=== PATIENT | female | born 1965 | race Caucasian/White ===

== ENCOUNTER → 2019-06-10 11:00 | Outpatient (BNVA) | payer SELFPAY | PROVIDERS: Visit Provider Registered Nurse | DX: E78.5 Hyperlipidemia, unspecified (principal); I10 Essential (primary) hypertension | CPT/HCPCS: 80053; 80061; 85025 ==

== ENCOUNTER 2020-02-18 21:52 | Inpatient (IN) | payer SELFPAY ==
[2020-02-18 22:14] VITALS: BP 120/86; PULSE 108; RESP 18; TEMP 37.2; O2SAT 97; BMI 18.3
--- NOTE | 2020-02-18 22:23 | W.ED.BACK ---
Documented by User: MARIE Guerrero 02/19/20 00:16 HPI - Back Pain/Injury General: Chief Complaint: Back Pain/Injury Stated Complaint: back pain/ blood in urine Time Seen by Provider: 02/18/20 22:23 Source: patient Mode of arrival: ambulatory Limitations: no limitations History of Present Illness: HPI Narrative: 54-year-old female comes in with low back pain on the left side of back. Patient reports 1 month ago she had hit her back against the counter and since then she has had some increased back discomfort. Patient today she noticed that she had blood in the urine. Patient came in for concerns of bleeding in the urine and the persistent low back pain. Patient does report history of coronary artery disease, hypertension, cigarette smoking, and alcohol use. Patient reports 2-3 drinks a night. MD elicited complaint: back pain Review of Systems General: Reports: 10 or more systems reviewed and unremarkable except in HPI and below Musc: Reports: back pain PFS ED PFSH: Medical History (Updated 02/19/20 @ 01:03 CDT by Adrien Samuel DO) CAD (coronary artery disease) Essential hypertension Hyperlipidemia Surgical History Hx of heart artery stent Social History Smoking and tobacco status: current every day smoker Physical Exam Const: COMMON NORMALS: no acute distress and patient oriented x3 GENERAL APPEARANCE: cooperative HENMT: COMMON NORMALS: normocephalic and Normal external nose present HEAD & SCALP: normal to inspection and normocephalic NOSE: Normal external nose present MOUTH: Normal oral and palatal mucosa present THROAT: posterior oropharynx normal Eye: GENERAL EYE: appearance normal, both eyes and all related structures Neck/C-Spine: COMMON NORMALS: full ROM Lymph: LYMPHATIC: no lymphadenopathy noted Chest: COMMONS NORMALS: normal inspection of the chest Resp: COMMON NORMALS: normal respiratory effort EFFORT & INSPECTION: Yes able to speak in complete sentences Cardio: COMMON NORMALS: regular rate and regular rhythm RATE: regular rate RHYTHM: regular rhythm GI: COMMON NORMALS: non-tender Back/Pelvis: LUMBAR SPINE/LOWER BACK: Yes paraspinal muscle tenderness Lumbar paraspinal muscle tenderness: bilateral Extremity: COMMON NORMALS: normal to inspection Neuro: COMMON NORMALS: patient oriented x3 and moves all extremities Psych: COMMON NORMALS: mental status grossly normal and cooperative Skin: COMMON NORMALS: no rashes or lesions noted GENERAL SKIN EXAM: no rashes or lesions noted Course ED course: 0006, reviewed laboratory values with Dr. Samuel regarding patient's anemia and patient's hyponatremia and hypokalemia. Patient also has significant urinary tract infection. He feels and agrees with me that patient probably needs to be admitted for treatment of the urinary tract infection investigation further regarding the anemia. We are awaiting CT results at this time. Vital Signs: Vital signs: Vital Signs Temperature 99.0 F 02/18/20 22:14 Pulse Rate 94 02/19/20 01:05 CD T Respiratory Rate 16 02/19/20 01:05 CD T Blood Pressure 126/84 02/19/20 01:05 CD T Pulse Oximetry 99 02/19/20 01:05 CD T MDM - Back Pain/Injury MDM Narrative: Medical decision making narrative: Patient comes in today for concerns of low back pain and blood in urine. Patient reports illness for last 2 days. On exam abdomen soft nontender. Patient has some bilateral paraspinous muscle tenderness on palpation. No vertebral tenderness of the spine. Patient is very pale in color. Vital signs are normal. Patient does admit to drinking alcohol this evening. Differential diagnosis includes not limited to GI bleed, urinary tract infection, renal calculi, anemia. Laboratory values noted a hemoglobin hematocrit of 7.1 and 20.5, sodium potassium was 124 and 3.0, patient's EtOH was 157, urinalysis showed a large amount of white blood cells. Patient needs treated for urinary tract infection and needs to be further evaluated for anemia and blood replacement. CT scan noted some cystitis and possible pyelonephritis and colitis. After he talked with Dr. Stanley who agreed to admission. Lab Data: Labs: Lab Results 02/18/20 02/18/20 02/18/20 Range/Units 22:10 22:33 22:40 WBC 6.1 (4.0-10.0) 10^3/ uL RBC 2.15 L (4.1-5.3) 10^6/u L Hgb 7.1 L (11.5-15.3) g/dL Hct 20.5 L* (37.0-47.0) % MCV 95.3 (81-99) fL MCH 33.0 (28.0-34.0) pg MCHC 34.6 (30.0-36.0) g/dL RDW 13.3 (12.1-15.1) % Plt Count 270 (130-400) 10^3/c mm MPV 8.7 (7.4-10.4) fL Neut % (Auto) 72.9 % Lymph % (Auto) 19.2 % [place] % (Auto) 6.0 % Eos % (Auto) 0.7 % Baso % (Auto) 0.5 % Neut # (Auto) 4.42 (1.8-7.7) 10^3/u L Lymph # (Auto) 1.2 (0.8-4.8) 10^3/u L [place] # (Auto) 0.4 (0.2-0.9) 10^3/u L Eos # (Auto) 0.0 (0.0-0.8) 10^3/u L Baso # (Auto) 0.0 (0.0-0.1) 10^3/u L Nucleated RBC % (a uto) 0 % Nucleated RBCs # 0.0 /100WBC Sodium (136-145) mmol/L Potassium (3.5-5.1) mmol/L Chloride (98-107) mmol/L Carbon Dioxide (22-29) mmol/L Anion Gap (5-19) BUN (6-20) mg/dL Creatinine (0.5-0.9) mg/dL GFR Calculation (90-130) mL/min Glucose (65-115) mg/dL Calculated Osmolal ity (285-295) mOsm/k g Calcium (8.5-10.5) mg/dL Total Bilirubin (0.15-1.2) mg/dL AST (0-32) U/L ALT (0-33) U/L Alkaline Phosphata se (35-105) IU/L Creatine Kinase (26-192) U/L Total Protein (6.6-8.7) g/dL Albumin (3.5-5.2) g/dL Globulin (1.3-4.6) g/dL Lipase (13-60) U/L Urine Color Yellow (Yellow) Urine Appearance Sl cloudy A (CLEAR) Urine pH 8 H (5-7) Ur Specific Gravit y 1.010 (1.005-1.030) Urine Protein 1+ H (Negative) Urine Glucose (UA) Norm (Normal) Urine Ketones 1+ H (Negative) Urine Blood 3+ H (Negative) Urine Nitrate Negative (Negative) Urine Bilirubin Neg (Negative) Prot Sulfosalicyli c Acd Positive (Negative) Urine Urobilinogen Norm (Negative) mg/dL Ur Leukocyte Honey ase 2+ H (Negative) Urine RBC 10-15 H (0-2) /hpf Urine WBC 55-80 H (0-5) /hpf Ur Squamous Epith Cells 0-4 H (0-5) /hpf Amorphous Sediment Not Reportable Urine Bacteria 4+ H (NONE) /hpf Ethyl Alcohol 156 H (0-10) mg/dL Blood Type Rho(D) Type 02/18/20 02/19/20 Range/Units 22:40 00:35 WBC (4.0-10.0) 10^3/ uL RBC (4.1-5.3) 10^6/u L Hgb (11.5-15.3) g/dL Hct (37.0-47.0) % MCV (81-99) fL MCH (28.0-34.0) pg MCHC (30.0-36.0) g/dL RDW (12.1-15.1) % Plt Count (130-400) 10^3/c mm MPV (7.4-10.4) fL Neut % (Auto) % Lymph % (Auto) % [place] % (Auto) % Eos % (Auto) % Baso % (Auto) % Neut # (Auto) (1.8-7.7) 10^3/u L Lymph # (Auto) (0.8-4.8) 10^3/u L [place] # (Auto) (0.2-0.9) 10^3/u L Eos # (Auto) (0.0-0.8) 10^3/u L Baso # (Auto) (0.0-0.1) 10^3/u L Nucleated RBC % (a uto) % Nucleated RBCs # /100WBC Sodium 124 L (136-145) mmol/L Potassium 3.0 L (3.5-5.1) mmol/L Chloride 80 L (98-107) mmol/L Carbon Dioxide 22 (22-29) mmol/L Anion Gap 25.0 H (5-19) BUN 5 L (6-20) mg/dL Creatinine 0.3 L (0.5-0.9) mg/dL GFR Calculation 232.7 H (90-130) mL/min Glucose 82 (65-115) mg/dL Calculated Osmolal ity 254 L (285-295) mOsm/k g Calcium 9.1 (8.5-10.5) mg/dL Total Bilirubin 0.4 (0.15-1.2) mg/dL AST 69 H (0-32) U/L ALT 16 (0-33) U/L Alkaline Phosphata se 172 H (35-105) IU/L Creatine Kinase 90 (26-192) U/L Total Protein 7.5 (6.6-8.7) g/dL Albumin 4.3 (3.5-5.2) g/dL Globulin 3.2 (1.3-4.6) g/dL Lipase 152 H (13-60) U/L Urine Color (Yellow) Urine Appearance (CLEAR) Urine pH (5-7) Ur Specific Gravit y (1.005-1.030) Urine Protein (Negative) Urine Glucose (UA) (Normal) Urine Ketones (Negative) Urine Blood (Negative) Urine Nitrate (Negative) Urine Bilirubin (Negative) Prot Sulfosalicyli c Acd (Negative) Urine Urobilinogen (Negative) mg/dL Ur Leukocyte Honey ase (Negative) Urine RBC (0-2) /hpf Urine WBC (0-5) /hpf Ur Squamous Epith Cells (0-5) /hpf Amorphous Sediment Urine Bacteria (NONE) /hpf Ethyl Alcohol (0-10) mg/dL Blood Type A Positive Rho(D) Type Positive Discharge Plan Discharge Patient Disposition: Admitted As Inpatient Clinical Impression: Colitis Anemia Qualifiers: Anemia type: iron deficiency Iron deficiency anemia type: chronic blood loss Qualified Code(s): D50.0 - Iron deficiency anemia secondary to blood loss (chronic) UTI (urinary tract infection) Qualifiers: Urinary tract infection type: acute cystitis Hematuria presence: with hematuria Qualified Code(s): N30.01 - Acute cystitis with hematuria Condition: Stable Coding Level of Care Code 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 [facility] Fwd Exam Comprehensive Documented by User: dArien Samuel DO 02/19/20 01:24 CDT HPI - Back Pain/Injury General: Chief Complaint: Back Pain/Injury Stated Complaint: back pain/ blood in urine Time Seen by Provider: 02/18/20 22:23 [facility] ED PFSH: Medical History (Updated 02/19/20 @ 01:03 CDT by Adrien Samuel DO) CAD (coronary artery disease) Essential hypertension Hyperlipidemia Surgical History Hx of heart artery stent Social History Smoking and tobacco status: current every day smoker Course Vital Signs: Vital signs: Vital Signs Temperature 99.0 F 02/18/20 22:14 Pulse Rate 94 02/19/20 01:05 CD T Respiratory Rate 16 02/19/20 01:05 CD T Blood Pressure 126/84 02/19/20 01:05 CD T Pulse Oximetry 99 02/19/20 01:05 CD T MDM - Back Pain/Injury MDM Narrative: Medical decision making narrative: This patient was originally seen by MARIE Henriquez. I agree with his history, evaluation, and initial management. This patient has colitis by CT. She also has a urinary tract infection. She has a hemoglobin of 7.1 that will require transfusion. Her potassium is 3.0. Spoke with the hospitalist team who is agreed to admit. He has seen the patient in the ER. Lab Data: Labs: Lab Results 02/18/20 02/18/20 02/18/20 Range/Units 22:10 22:33 22:40 WBC 6.1 (4.0-10.0) 10^3/ uL RBC 2.15 L (4.1-5.3) 10^6/u L Hgb 7.1 L (11.5-15.3) g/dL Hct 20.5 L* (37.0-47.0) % MCV 95.3 (81-99) fL MCH 33.0 (28.0-34.0) pg MCHC 34.6 (30.0-36.0) g/dL RDW 13.3 (12.1-15.1) % Plt Count 270 (130-400) 10^3/c mm MPV 8.7 (7.4-10.4) fL Neut % (Auto) 72.9 % Lymph % (Auto) 19.2 % [place] % (Auto) 6.0 % Eos % (Auto) 0.7 % Baso % (Auto) 0.5 % Neut # (Auto) 4.42 (1.8-7.7) 10^3/u L Lymph # (Auto) 1.2 (0.8-4.8) 10^3/u L [place] # (Auto) 0.4 (0.2-0.9) 10^3/u L Eos # (Auto) 0.0 (0.0-0.8) 10^3/u L Baso # (Auto) 0.0 (0.0-0.1) 10^3/u L Nucleated RBC % (a uto) 0 % Nucleated RBCs # 0.0 /100WBC Sodium (136-145) mmol/L Potassium (3.5-5.1) mmol/L Chloride (98-107) mmol/L Carbon Dioxide (22-29) mmol/L Anion Gap (5-19) BUN (6-20) mg/dL Creatinine (0.5-0.9) mg/dL GFR Calculation (90-130) mL/min Glucose (65-115) mg/dL Calculated Osmolal ity (285-295) mOsm/k g Calcium (8.5-10.5) mg/dL Total Bilirubin (0.15-1.2) mg/dL AST (0-32) U/L ALT (0-33) U/L Alkaline Phosphata se (35-105) IU/L Creatine Kinase (26-192) U/L Total Protein (6.6-8.7) g/dL Albumin (3.5-5.2) g/dL Globulin (1.3-4.6) g/dL Lipase (13-60) U/L Urine Color Yellow (Yellow) Urine Appearance Sl cloudy A (CLEAR) Urine pH 8 H (5-7) Ur Specific Gravit y 1.010 (1.005-1.030) Urine Protein 1+ H (Negative) Urine Glucose (UA) Norm (Normal) Urine Ketones 1+ H (Negative) Urine Blood 3+ H (Negative) Urine Nitrate Negative (Negative) Urine Bilirubin Neg (Negative) Prot Sulfosalicyli c Acd Positive (Negative) Urine Urobilinogen Norm (Negative) mg/dL Ur Leukocyte Honey ase 2+ H (Negative) Urine RBC 10-15 H (0-2) /hpf Urine WBC 55-80 H (0-5) /hpf Ur Squamous Epith Cells 0-4 H (0-5) /hpf Amorphous Sediment Not Reportable Urine Bacteria 4+ H (NONE) /hpf Ethyl Alcohol 156 H (0-10) mg/dL Blood Type Rho(D) Type 02/18/20 02/19/20 Range/Units 22:40 00:35 WBC (4.0-10.0) 10^3/ uL RBC (4.1-5.3) 10^6/u L Hgb (11.5-15.3) g/dL Hct (37.0-47.0) % MCV (81-99) fL MCH (28.0-34.0) pg MCHC (30.0-36.0) g/dL RDW (12.1-15.1) % Plt Count (130-400) 10^3/c mm MPV (7.4-10.4) fL Neut % (Auto) % Lymph % (Auto) % [place] % (Auto) % Eos % (Auto) % Baso % (Auto) % Neut # (Auto) (1.8-7.7) 10^3/u L Lymph # (Auto) (0.8-4.8) 10^3/u L [place] # (Auto) (0.2-0.9) 10^3/u L Eos # (Auto) (0.0-0.8) 10^3/u L Baso # (Auto) (0.0-0.1) 10^3/u L Nucleated RBC % (a uto) % Nucleated RBCs # /100WBC Sodium 124 L (136-145) mmol/L Potassium 3.0 L (3.5-5.1) mmol/L Chloride 80 L (98-107) mmol/L Carbon Dioxide 22 (22-29) mmol/L Anion Gap 25.0 H (5-19) BUN 5 L (6-20) mg/dL Creatinine 0.3 L (0.5-0.9) mg/dL GFR Calculation 232.7 H (90-130) mL/min Glucose 82 (65-115) mg/dL Calculated Osmolal ity 254 L (285-295) mOsm/k g Calcium 9.1 (8.5-10.5) mg/dL Total Bilirubin 0.4 (0.15-1.2) mg/dL AST 69 H (0-32) U/L ALT 16 (0-33) U/L Alkaline Phosphata se 172 H (35-105) IU/L Creatine Kinase 90 (26-192) U/L Total Protein 7.5 (6.6-8.7) g/dL Albumin 4.3 (3.5-5.2) g/dL Globulin 3.2 (1.3-4.6) g/dL Lipase 152 H (13-60) U/L Urine Color (Yellow) Urine Appearance (CLEAR) Urine pH (5-7) Ur Specific Gravit y (1.005-1.030) Urine Protein (Negative) Urine Glucose (UA) (Normal) Urine Ketones (Negative) Urine Blood (Negative) Urine Nitrate (Negative) Urine Bilirubin (Negative) Prot Sulfosalicyli c Acd (Negative) Urine Urobilinogen (Negative) mg/dL Ur Leukocyte Honey ase (Negative) Urine RBC (0-2) /hpf Urine WBC (0-5) /hpf Ur Squamous Epith Cells (0-5) /hpf Amorphous Sediment Urine Bacteria (NONE) /hpf Ethyl Alcohol (0-10) mg/dL Blood Type A Positive Rho(D) Type Positive Discharge Plan Discharge Patient Disposition: Admitted As Inpatient Clinical Impression: Colitis Anemia Qualifiers: Anemia type: iron deficiency Iron deficiency anemia type: chronic blood loss Qualified Code(s): D50.0 - Iron deficiency anemia secondary to blood loss (chronic) UTI (urinary tract infection) Qualifiers: Urinary tract infection type: acute cystitis Hematuria presence: with hematuria Qualified Code(s): N30.01 - Acute cystitis with hematuria Condition: Stable Coding Level of Care Code 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 [facility] Maria T Exam Comprehensive
--- NOTE | 2020-02-18 22:38 | CTR_ITS ---
PROCEDURE INFORMATION: Exam: CT Abdomen And Pelvis Without Contrast Exam date and time: 02/18/2020 11:33 PM Age: 54 years old Clinical indication: Abdominal pain; Flank; Other: Bilateral; Patient HX: C/O lbp and hematuria TECHNIQUE: Imaging protocol: Computed tomography of the abdomen and pelvis without contrast. Radiation optimization: All CT scans at this facility use at least one of these dose optimization techniques: automated exposure control; mA and/or kV adjustment per patient size (includes targeted exams where dose is matched to clinical indication); or iterative reconstruction. COMPARISON: No relevant prior studies available. RADIATION DOSE METRICS: Total DLP (mGy-cm): 461.34 FINDINGS: Liver: There is hypoattenuation of the hepatic parenchyma compatible with fatty infiltration. Gallbladder and bile ducts: Normal. No calcified stones. No ductal dilation. Pancreas: Normal. No ductal dilation. Spleen: Normal. No splenomegaly. Adrenal glands: Normal. No mass. Kidneys and ureters: Strandy opacities are seen in the right perinephric fascia possibly representing chronic scarring although inflammatory changes and pyelonephritis cannot be entirely excluded. A 1.1 mm nonobstructing left renal calculus is seen. Stomach and bowel: There is an edematous bowel wall pattern of the cecum and ascending colon, findings could represent colitis. Appendix: The appendix is visualized and is normal in configuration. Intraperitoneal space: Unremarkable. No free air. No significant fluid collection. Vasculature: Unremarkable. No abdominal aortic aneurysm. Lymph nodes: Small mesenteric lymph nodes are seen that are below CT criteria for lymphadenopathy. Urinary bladder: There is some mild bladder wall thickening and diffuse haziness seen along the serosal margin of the bladder, findings that may represent cystitis. Reproductive: Unremarkable as visualized. Bones/joints: Unremarkable. No acute fracture. Soft tissues: Unremarkable. CT/CT kidney stone 03121 IMPRESSION: 1. There is mild thickening of the bladder wall and diffuse haziness seen along the serosal margin of the bladder, findings that could represent cystitis. 2. Strandy opacities are seen in the right perinephric fascia possibly representing scarring although inflammatory changes and pyelonephritis cannot be entirely excluded. 3. Edematous bowel wall pattern of the cecum and ascending colon, findings that could represent colitis. 4. Fatty infiltration of the liver 5. 1.1 mm nonobstructing left renal calculus 6. Normal appendix Radiation Dose CTDIVOL = (mGy): DLP = 461.34 (mGy-cm)
[2020-02-18 22:43] LABS: Basophils % 0.5 %; Eosinophils % 0.7 %; Hemoglobin 7.1 g/dL (11.5-15.3); Lymphocytes # 1.2 10^3/uL (0.8-4.8); Lymphocytes % 19.2 %; Mean Corpuscular HGB Conc 34.6 g/dL (30.0-36.0); Mean Corpuscular Volume 95.3 fL (81-99); Mean Platelet Volume 8.7 fL (7.4-10.4); Monocytes # 0.4 10^3/uL (0.2-0.9); Neutrophils # 4.42 10^3/uL (1.8-7.7); Neutrophils % 72.9 %; Nucleated Red Blood Cells % 0 %; Platelet Count 270 10^3/cmm (130-400); Red Blood Count 2.15 10^6/uL (4.1-5.3); Red Cell Distribution Width 13.3 % (12.1-15.1); White Blood Count 6.1 10^3/uL (4.0-10.0)
[2020-02-18] MEDS: sodium chloride 0.9% 1,000 ML 999 ML IV (22:48)
[2020-02-18] MEDS: ketorolac 30 mg/mL INJ 15 MG IVP (22:48)
[2020-02-18 23:04] LABS: Alanine Aminotransferase 16 U/L (0-33); Albumin Level 4.3 g/dL (3.5-5.2); Alkaline Phosphatase 172 IU/L (35-105); Aspartate Amino Transferase 69 U/L (0-32); Blood Urea Nitrogen 5 mg/dL (6-20); Calcium 9.1 mg/dL (8.5-10.5); Carbon Dioxide 22 mmol/L (22-29); Chloride 80 mmol/L (98-107); Creatine Phosphokinase 90 U/L (26-192); Globulin 3.2 g/dL (1.3-4.6); Glomerular Filtration Rate 232.7 mL/min (90-130); Glucose 82 mg/dL (65-115); Lipase 152 U/L (13-60); Osmolality Calculated 254 mOsm/kg (285-295); Sodium 124 mmol/L (136-145); Total Bilirubin 0.4 mg/dL (0.15-1.2); Total Protein 7.5 g/dL (6.6-8.7)
[2020-02-18 23:15] LABS: Add Urine Microscopic? YES; Bilirubin Urine Neg (Negative); Blood Urine 3+ (Negative); Glucose Urine UA Norm (Normal); Ketones Urine 1+ (Negative); Leukocyte Esterase Urine 2+ (Negative); Nitrate Urine Negative (Negative); Protein Urine 1+ (Negative); Sulfosalicylic Acid Urine Positive (Negative); Urine Color Yellow (Yellow); Urobilinogen Urine Norm (Negative); pH Urine 8 (5-7)
[2020-02-18 23:23] LABS: Hematocrit 20.5 % (37.0-47.0)
[2020-02-18 23:28] LABS: Alcohol Level 156 mg/dL (0-10)
[2020-02-18 23:40] LABS: Add Urine Culture? Yes; Bacteria Urine 4+ /hpf; Squamous Epithelial Cell Urine 0-4 /hpf (0-5); WBC Urine 55-80 /hpf (0-5)
[2020-02-19] VITALS (10 sets, daily range): BP systolic 122–149; BP diastolic 64–91; PULSE 70–110; RESP 16–20; TEMP 36.4–37.1; O2SAT 96–100
[2020-02-19] MEDS: cefTRIAXone 1,000 MG in sodium chloride 0.9% (plus) 50 ML 100 MG IV ×3 (00:14→23:32)
--- NOTE | 2020-02-19 01:21 | P.HP_ITS ---
Providers/Chief Complaint Chief Complaint: back pain/ blood in urine History of Present Illness 54-year-old female with a past medical history significant for hypertension, coronary artery disease status post PCI/stent, dyslipidemia, tobacco abuse and chronic alcoholism who presented to the hospital with back pain and hematuria. As far as her back pain she stated this has been ongoing for about 1 month after she has sustained a fall. This episode however was different and more on her flanks. Earlier today while drinking at [employer] green party she stated she noted hematuria. Denied to recent fever or chills. Denied nausea or vomiting. Upon arrival to emergency room her initial laboratory workup showed a WBC of 6.1, hemoglobin of 7.1, hematocrit of 20.5 and a platelet count of 270. sodium of 124, potassium of 3.0, chloride of 80, bicarb 22, BUN of 5 and creatinine is 0.3. AST which was slightly elevated at 69, ALT of 16 an alkaline phosphatase of 172. urinalysis showed 2+ leukocyte esterase, 55 to 80 wbc's. Alcohol level was elevated 156. CT abdomen pelvis was performed which showed mild thickening of the bladder wall and haziness representing acute cystitis with strandy opacities in right perinephric fascia suspicious for pyelonephritis. Also noted to have edematous bowel pattern of the cecum and ascending colon suspicious for colitis. Patient was started on Rocephin and admitted to the hospital. Of note patient had denied any recent dark stools or bloody emesis. Has not had any prior EGD or colonoscopies. Medications/Allergies Home Medications Medication Instructions Recorded Confirmed Last Taken Type amitriptyline 10 mg tablet 10 mg PO DAILY 06/10/19 02/14/20 Unknown History aspirin 81 mg tablet,delayed 81 mg PO DAILY 06/10/19 02/14/20 Unknown History release lutein 6 mg capsule 6 mg PO DAILY 06/10/19 02/14/20 Unknown History nitroglycerin 0.4 mg sublingual 0.4 mg SUBLINGUAL Q5M PRN 06/10/19 02/14/20 Unknown History tablet atorvastatin 80 mg tablet 80 mg PO DAILY #90 tab 01/02/20 02/14/20 Unknown Rx metoprolol tartrate 25 mg tablet 12.5 mg PO BID #90 tab 01/02/20 02/14/20 Unknown Rx clopidogrel 75 mg tablet See Rx Instructions .ROUTE 01/13/20 02/14/20 Unknown Rx .COMPLEX #30 tab methocarbamol 500 mg tablet 500 mg PO DAILY PRN #90 tab 01/13/20 02/14/20 Unknown Rx buspirone 10 mg tablet 10 mg PO TID 90 Days #270 tab 02/14/20 02/14/20 Unknown Rx Allergies Allergy/AdvReac Type Severity Reaction Status Date / Time No Known Allergies Allergy Verified 02/14/20 14:50 PFSH Acute PFSH: Medical History (Updated 02/19/20 @ 02:01 by Veronica Armenta MD) CAD (coronary artery disease) Essential hypertension Hyperlipidemia Surgical History Hx of heart artery stent Social History Smoking and tobacco status: current every day smoker Vitals/I&O/Wt Last Vital Signs Temp 99.0 F 02/18/20 22:14 Pulse 94 02/19/20 01:05 CDT Resp 16 02/19/20 01:05 CDT BP 126/84 02/19/20 01:05 CDT Pulse Ox 99 02/19/20 01:05 CDT 02/18/20 02/18/20 02/19/20 14:59 22:59 05:59 Intake Total 1050 / 1050 Balance 1050 / 1050 Weight last 48 hrs Weight 47.627 kg Data : 02/18/20 22:40 02/18/20 22:40 A&P Assessment and plan (1) Cystitis, acute: Status: Acute (2) Hematuria: Status: Acute (3) Acute anemia: Status: Acute (4) Alcohol abuse: Status: Acute (5) Hyponatremia: Status: Acute Acute cystitis with hematuria Suspected R. Pyelonephritis Acute Anemia Alcohol intoxication risk for withdrawal Hyponatremia Hypokalemia Hypertension Dyslipidemia Tobacco abuse DVT ppx Plan; Continue Rocephin 2g IV q24hr Follow up on blood culture x 2 Follow up on urine culture Monitor H/H Transfuse if less than 7.0 Check Stool for occult blood Hold aspirin/plavix Consider surgery consult for scope Check Iron studies in am Protonix 40 mg IV BID NS at 75cc/hr CIWA with as needed Ativan based on score Fall/Seizure precautions Folate / Thiamine / MV added Alcohol cessation councling Check UA sodium / osm Replace K and repeat in am Repeat cbc/cmp in am Attestations Medical Necessity Statement*: Patient is admitted with acute cystitis/ pyelonephritis requiring IV antibiotics and hematuria with acute anemia will require over 2 midnight stay in hospital for evaluation and treatment Time Spent in Patient Care: (>than 50% of time spent in counselling and/or direct pt care on unit) . 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
--- NOTE | 2020-02-19 01:36 | PC.NURSE ---
meds not given due to time change
--- NOTE | 2020-02-19 01:45 | PC.NURSE ---
agree with this assessment
[2020-02-19] MEDS: pantoprazole 40 mg SDV IVP ×2 (02:15→14:32)
[2020-02-19] MEDS: sodium chloride 0.9% 1,000 ML 75 ML IV ×2 (02:54→23:31)
[2020-02-19 03:45] LABS: Urine Random Sodium 16 mmol/L
[2020-02-19 05:51] LABS: Basophils % 0.2 %; Eosinophils # 0.1 10^3/uL (0.0-0.8); Lymphocytes # 0.6 10^3/uL (0.8-4.8); Lymphocytes % 13.5 %; Mean Corpuscular HGB Conc 34.9 g/dL (30.0-36.0); Mean Corpuscular Hemoglobin 33.5 pg (28.0-34.0); Mean Platelet Volume 8.6 fL (7.4-10.4); Monocytes # 0.3 10^3/uL (0.2-0.9); Monocytes % 5.8 %; Neutrophils # 3.46 10^3/uL (1.8-7.7); Neutrophils % 77.8 %; Nucleated Red Blood Cells % 0 %; Platelet Count 174 10^3/cmm (130-400); Red Blood Count 1.73 10^6/uL (4.1-5.3); Red Cell Distribution Width 13.3 % (12.1-15.1); White Blood Count 4.5 10^3/uL (4.0-10.0)
[2020-02-19 05:52] LABS: Hematocrit 16.6 % (37.0-47.0); Hemoglobin 5.8 g/dL (11.5-15.3)
[2020-02-19 06:14] LABS: Iron 177 ug/dL (37-145)
[2020-02-19 06:24] LABS: Alanine Aminotransferase 13 U/L (0-33); Albumin Level 3.5 g/dL (3.5-5.2); Alkaline Phosphatase 139 IU/L (35-105); Aspartate Amino Transferase 54 U/L (0-32); Blood Urea Nitrogen 4 mg/dL (6-20); Calcium 7.9 mg/dL (8.5-10.5); Carbon Dioxide 20 mmol/L (22-29); Chloride 91 mmol/L (98-107); Globulin 2.2 g/dL (1.3-4.6); Glucose 61 mg/dL (65-115); Osmolality Calculated 267 mOsm/kg (285-295); Sodium 131 mmol/L (136-145); Total Bilirubin 0.4 mg/dL (0.15-1.2); Total Protein 5.7 g/dL (6.6-8.7)
[2020-02-19 06:28] LABS: Anion Gap 23.2 (5-19); Potassium 3.2 mmol/L (3.5-5.1)
[2020-02-19] MEDS: sodium chloride 0.9% (100 ml) 100 ML 50 ML (06:39)
[2020-02-19 06:48] LABS: Ferritin 1191 ng/mL (15-150)
[2020-02-19 06:49] LABS: Percent Saturation 91.2 % (20-50); Total Iron Binding Capacity 194 mcg/dl; Unsaturated Iron Binding < 17 ug/dL (112-347)
[2020-02-19] MEDS: potassium chloride oral liq 20 mEq/15 mL UDC 40 MEQ PO (06:51)
[2020-02-19 07:35] LABS: INR 1.24 (0.8-1.2)
--- NOTE | 2020-02-19 08:51 | P.PN_ITS ---
Subjective Subjective: Interval history: History and physical were reviewed. Patient reports some low back pain. She denies any dysuria. She states she sees blood when she urinates. She denies any vaginal bleeding. She reports no diarrhea, or blood in her stool. She reports no vomiting or hematemesis. She denies any anti-inflammatory use other than aspirin that she takes every day. This was prescribed along with Plavix after a LAD stent was placed July 2017. Medications: Reviewed: Yes Vitals/I&O/Wt Last Vital Signs Temp 97.6 F 02/19/20 07:43 Pulse 81 02/19/20 07:43 Resp 20 H 02/19/20 07:43 BP 124/84 02/19/20 07:43 Pulse Ox 100 02/19/20 07:43 02/18/20 02/19/20 02/19/20 23:59 06:59 14:59 Intake Total Output Total Balance Weight last 48 hrs Weight 47.673 kg Weight 47.627 kg Physical Exam Narrative: EXAM NARRATIVE: General exam is a white female, in no apparent distress Cardiovascular regular rate and rhythm, no murmur Lungs clear Abdomen is soft, positive bowel sounds. Nontender. Extremities no cyanosis clubbing or edema Data : 02/19/20 05:40 02/19/20 05:40 Micro: Microbiology 02/19/20 00:35 Blood Culture - Preliminary Blood SPECIMEN COLLECTED 02/19/20 00:35 Blood Culture - Preliminary Blood SPECIMEN COLLECTED A&P Assessment and plan (1) Anemia: Significant anemia. Await stool Hemoccult She reports blood in her urine but I have not visualized. Certainly her urinalysis was not impressive for blood. Transfusion of 1 unit packed red blood cells currently occurring. Recheck hemoglobin following. Check haptoglobin Does not appear to be acutely bleeding. Protonix 40 mg twice daily IV Continue hydration but reduce to 50 cc an hour considering giving significant blood products today. Avoid all anti-inflammatories Status: Acute Qualifiers: Anemia type: iron deficiency Iron deficiency anemia type: chronic blood loss Qualified Code(s): D50.0 - Iron deficiency anemia secondary to blood loss (chronic) (2) Cystitis, acute: Rocephin 1 g IV every 12 hours Await urine culture Status: Acute (3) Hyponatremia: Improved Check TSH Status: Acute (4) Hypokalemia: Supplement Status: Acute (5) Alcohol abuse: Monitor for withdrawal, [facility] protocol Thiamine, folate Status: Acute (6) Smoker: Counseling Status: Acute (7) CAD (coronary artery disease): Holding Plavix, aspirin secondary to severe anemia. Will need to reinitiate aspirin when hemoglobin is stable and bleeding risk is less Continue metoprolol, statin Status: Chronic Qualifiers: Coronary Disease-Associated Artery/Lesion type: unspecified vessel or lesion type [place] vs. transplanted heart: [place] heart Associated angina: without angina Qualified Code(s): I25.10 - Atherosclerotic heart disease of [place] coronary artery without angina pectoris (8) Essential hypertension: Continue metoprolol Status: Chronic (9) Hyperlipidemia: Continue statin Status: Acute Qualifiers: Hyperlipidemia type: mixed hyperlipidemia Qualified Code(s): E78.2 - Mixed hyperlipidemia Additional A&P Information Full code SCDs for DVT prophylaxis Attestations Medical Necessity Statement*: Needs continued hospital stay for evaluation of severe anemia requiring transfusion. Coding Level of Care Code Acute Junior Systems Administrator for Chg Fwd Diagnoses Anemia D50.0 Anemia type: iron deficiency Iron deficiency anemia type: chronic blood loss Cystitis, acute N30.00 Hyponatremia E87.1 Hypokalemia E87.6 Alcohol abuse F10.10 Smoker F17.200 CAD (coronary artery disease) I25.10 Coronary Disease-Associated Artery/Lesion type: unspecified vessel or lesion type [place] vs. transplanted heart: [place] heart Associated angina: without angina Essential hypertension I10 Hyperlipidemia E78.2 Hyperlipidemia type: mixed hyperlipidemia
[2020-02-19] MEDS: thiamine 100 mg Tablet PO (09:04)
[2020-02-19] MEDS: folic acid 1 mg Tablet PO (09:04)
[2020-02-19] MEDS: multivitamin therapeutic Tablet 1 TAB PO (09:04)
[2020-02-19 09:33] LABS: Magnesium 1.2 mg/dL (1.7-2.3); Thyroid Stimulating Hormone 2.51 uIU/mL (0.27-4.20)
--- NOTE | 2020-02-19 09:58 | PC.CHAP ---
Pastoral Care Encounter/Spiritual Assessment Type of Contact [X] Declined concrete curer visit [] Patient/Family/Request visit [] Outpatient visit [] Follow-up visit [] Physician referral [] Code/Alert [X] Routine visit [] Staff referral [] Actively dying [] Patient sleeping [] Family support [] [] Out of room [] Palliative care [] [] Receiving care in room [] Pre-surgical visit [] Trauma [] Long length of stay [] ICU visit [] Other: Relational/Emotional Strength [] Patient feels connected with others/family/visitors/staff [X] Distress [] Loneliness/isolation [] Abandonment Spirituality of Patient [] Person of Estefany [] Attends Uatsdin of their Estefany [] Believes in Prayer [] Reads Bible or Islam materials [X] There are Spiritual issues to be addressed [facility] Interventions [] Prayer [X] Active listening [X] Non-anxious presence [] Spiritual/emotional support [] Crisis/trauma care [] Spiritual counseling [] Bereavement support [] Provided bereavement packet [] Provided Bible/devotional materials [] Provided toy/stuffed animal, coloring book to patient or family member [] Provided Communion [] Anointing/[place] [] Salvation [] Completed spiritual assessment [] Other: Impact on Illness or Injury [X] Angry [] Fearful [] Anxious [] Often cries [] Exhaustion [] Unable to work [] Unable to attend temple [] Unable to walk/stand [] Unable to read [] Unable to drive [] Unable to eat/drink [] Unable to sleep [] Unable to be with family [] Patient intubated [] Other: Summary: Patient did not want to visit or share the events leading up to her hospitalization. Empathy and active listening offered. Those strategies led her to share that she's Gnosticism but no longer attends synagogue and that anything spiritual is between her and God. I supported her in the latter fact and she began to calm down, apologizing for being so grumpy with me. I assured her that talking when you are thirsty and not feeling well is probably not very pleasant. We could visit anytime. Time spent with patient: <5 mins
[2020-02-19] MEDS: potassium chloride ER 10 mEq Tablet 40 MEQ PO (09:59)
[2020-02-19] MEDS: magnesium sulfate premix 2 GM/50 ML PIGGYBACK IV (12:11)
[2020-02-19 12:41] LABS: Hematocrit 24.9 % (37.0-47.0); Hemoglobin 8.4 g/dL (11.5-15.3)
[2020-02-19 17:19] LABS: Hematocrit 21.1 % (37.0-47.0); Hemoglobin 7.3 g/dL (11.5-15.3)
[2020-02-19] MEDS: metoprolol tartrate 25 mg Tablet 12.5 MG PO (17:25)
[2020-02-19] MEDS: atorvastatin 40 mg Tablet 80 MG PO (21:27)
[2020-02-19] MEDS: BuSPIRONE 10 mg Tablet PO (21:27)
[2020-02-20] VITALS (9 sets, daily range): BP systolic 121–153; BP diastolic 74–94; PULSE 81–97; RESP 16–20; TEMP 36.4–36.9; O2SAT 97–100
[2020-02-20] MEDS: lanolin oint 7 gm 1 APPLIC TOPICAL (00:17)
[2020-02-20] MEDS: TRAMadol 50 mg Tablet PO ×4 (00:18→20:22)
[2020-02-20] MEDS: pantoprazole 40 mg SDV IVP ×2 (01:57→14:13)
[2020-02-20 06:08] LABS: INR 1.13 (0.8-1.2)
[2020-02-20 06:10] LABS: Basophils % 0.6 %; Eosinophils # 0.1 10^3/uL (0.0-0.8); Eosinophils % 2.7 %; Hemoglobin 6.6 g/dL (11.5-15.3); Lymphocytes # 0.8 10^3/uL (0.8-4.8); Lymphocytes % 23.5 %; Mean Corpuscular HGB Conc 34.2 g/dL (30.0-36.0); Mean Corpuscular Hemoglobin 32.4 pg (28.0-34.0); Mean Corpuscular Volume 94.6 fL (81-99); Mean Platelet Volume 8.8 fL (7.4-10.4); Monocytes # 0.3 10^3/uL (0.2-0.9); Monocytes % 9.6 %; Neutrophils # 2.09 10^3/uL (1.8-7.7); Nucleated Red Blood Cells % 0 %; Platelet Count 158 10^3/cmm (130-400); Red Blood Count 2.04 10^6/uL (4.1-5.3); Red Cell Distribution Width 14.7 % (12.1-15.1); White Blood Count 3.3 10^3/uL (4.0-10.0)
[2020-02-20 06:23] LABS: Magnesium 1.5 mg/dL (1.7-2.3)
[2020-02-20 06:28] LABS: Alanine Aminotransferase 14 U/L (0-33); Albumin Level 3.4 g/dL (3.5-5.2); Alkaline Phosphatase 128 IU/L (35-105); Anion Gap 15.3 (5-19); Aspartate Amino Transferase 58 U/L (0-32); Blood Urea Nitrogen 3 mg/dL (6-20); Calcium 7.6 mg/dL (8.5-10.5); Carbon Dioxide 21 mmol/L (22-29); Chloride 94 mmol/L (98-107); Globulin 2.6 g/dL (1.3-4.6); Glomerular Filtration Rate 232.7 mL/min (90-130); Glucose 92 mg/dL (65-115); Osmolality Calculated 260 mOsm/kg (285-295); Potassium 3.3 mmol/L (3.5-5.1); Sodium 127 mmol/L (136-145); Total Bilirubin 0.4 mg/dL (0.15-1.2)
[2020-02-20 06:31] LABS: Hematocrit 19.3 % (37.0-47.0)
--- NOTE | 2020-02-20 08:09 | PC.NURSE ---
(Late Entry) PRBC x1 completed 02/19/20 at 10:00am. Pt tolerated transfusion well; no s/s reaction noted. VSS; see paper flowsheet for vital sign trends.
[2020-02-20] MEDS: multivitamin therapeutic Tablet 1 TAB PO (09:33)
[2020-02-20] MEDS: BuSPIRONE 10 mg Tablet PO ×3 (09:33→20:23)
[2020-02-20] MEDS: metoprolol tartrate 25 mg Tablet 12.5 MG PO ×2 (09:33→17:30)
[2020-02-20] MEDS: thiamine 100 mg Tablet PO (09:33)
[2020-02-20] MEDS: folic acid 1 mg Tablet PO (09:33)
--- NOTE | 2020-02-20 10:06 | PC.CHAP ---
Pastoral Care Encounter/Spiritual Assessment Type of Contact [] Declined social media senior associate visit [] Patient/Family/Request visit [] Outpatient visit [] Follow-up visit [] Physician referral [] Code/Alert [] Routine visit [] Staff referral [] Actively dying [] Patient sleeping [] Family support [] [] Out of room [] Palliative care [] [] Receiving care in room [] Pre-surgical visit [] Trauma [] Long length of stay [] ICU visit [] Other: Relational/Emotional Strength [] Patient feels connected with others/family/visitors/staff [] Distress [] Loneliness/isolation [] Abandonment Spirituality of Patient [] Person of Estefany [] Attends Protestant of their Estefany [] Believes in Prayer [] Reads Bible or Christian materials [] There are Spiritual issues to be addressed Software Validation Technician Interventions [x] Prayer [] Active listening [] Non-anxious presence [] Spiritual/emotional support [] Crisis/trauma care [] Spiritual counseling [] Bereavement support [] Provided bereavement packet [] Provided Bible/devotional materials [] Provided toy/stuffed animal, coloring book to patient or family member [] Provided Communion [] Anointing/[place] [] Salvation [x] Completed spiritual assessment [] Other: Impact on Illness or Injury [] Angry [] Fearful [] Anxious [] Often cries [] Exhaustion [] Unable to work [] Unable to attend christian [] Unable to walk/stand [] Unable to read [] Unable to drive [] Unable to eat/drink [] Unable to sleep [] Unable to be with family [] Patient intubated [] Other: Summary Time spent with patient
--- NOTE | 2020-02-20 10:53 | USCV_ITS ---
Sugar Cassidy Age: 54 Gender: F : 1965 Exam Date: 02/20/2020 15:17 Ordering Phys: Brian Jj MD Technologist: Ronna Robins [place] [facility] [place] BP: 144 / 79 HR: 77 Rhythm: Sinus Technical Quality: Adequate MEASUREMENTS (Male / Female) Normal Values 2D ECHO LV Diastolic Diameter PLAX 3.6 cm 4.2 - 5.9 / 3.9 - 5.3 cm LV Systolic Diameter PLAX 2.1 cm LV Chamber Size 3.0 cm IVS Diastolic Thickness 1.1 cm 0.6 - 1.0 / 0.6 - 0.9 cm IVS Systolic Thickness 1.5 cm LVPW Diastolic Thickness 1.5 cm 0.6 - 1.0 / 0.6 - 0.9 cm LVPW Systolic Thickness 2.2 cm RV Chamber Size 2.4 cm LVOT Diameter 2.1 cm LV Ejection Fraction 2D Teich 71.5 % LV Ejection Fraction MOD 2C 49.7 % LV Ejection Fraction 2C AL 49.8 % LA Diameter 2.8 cm LA Width 3.6 cm LA Height 5.1 cm RA Width 3.0 cm RA Height 4.0 cm Aorta at Sinotubular Diameter 2.9 cm M-MODE LV Diastolic Diameter MM 4.2 cm 4.2 - 5.9 / 3.9 - 5.3 cm LV Systolic Diameter MM 2.5 cm LV Ejection Fraction MM Teich 72.0 % IVS Diastolic Thickness MM 1.0 cm 0.6 - 1.0 / 0.6 - 0.9 cm IVS Systolic Thickness MM 1.2 cm LVPW Diastolic Thickness MM 1.1 cm 0.6 - 1.0 / 0.6 - 0.9 cm LVPW Systolic Thickness MM 1.2 cm Aortic Annulus Diameter 2.9 cm LA Ao Ratio MM 1.1 MV E Point Septal Separation 0.4 cm DOPPLER AV Peak Velocity 116.0 cm/s LVOT Peak Velocity 108.0 cm/s AV Area Cont Eq vti 2.7 cm squared AV Area Cont Eq pk 3.2 cm squared MV Area PHT 6.7 cm squared Mitral E to A Ratio 1.2 MV E' Velocity 52.0 cm/s Mitral E to MV E' Ratio 5.6 Mitral E to LV E' Lateral Ratio 5.8 Mitral E to LV E' Septal Ratio 5.4 TR Peak Velocity 269.6 cm/s TR Peak Gradient 29.1 mmHg TR Mean Velocity 184.9 cm/s TR Mean Gradient 16.7 mmHg TR Velocity Time Integral 101.7 cm TV Peak E Velocity 77.0 cm/s Right Atrial Pressure 3.0 mmHg Pulmonary Artery Systolic Pressu 32.1 mmHg PV Peak Velocity 50.0 cm/s RV Acceleration Time 0.2 s RV Ejection Time 0.4 s RV AcT/ET 0.5 FINDINGS Left Ventricle Normal left ventricular size and systolic function, EF 55%. Mild left ventricular hypertrophy. No regional wall motion abnormalities. Right Ventricle The right ventricle is normal in size and function. Right Atrium The right atrium is normal in size. Left Atrium Mildly increased left atrial size. Mitral Valve Trace mitral valve regurgitation. Aortic Valve Structurally normal aortic valve without significant sclerosis or stenosis. There is no aortic regurgitation. Tricuspid Valve Mild tricuspid valve regurgitation. Pulmonic Valve Pulmonic valve not well visualized. Pericardium Normal pericardium without effusion. Aorta Normal ascending aorta dimension. CONCLUSIONS Normal left ventricular size and systolic function, EF 55%. Mild left ventricular hypertrophy. No regional wall motion abnormalities. Mildly increased left atrial size. Mild tricuspid valve regurgitation. Estimated pulmonary artery peak systolic pressure 32 mmHg Trace mitral valve regurgitation. There is no pericardial effusion. There are no intracardiac masses. No previous study is available for comparison. Dr Amanuel Oviedo MD [facility] (Electronically Signed) Final Date: 20 February 2020 21:41 S
--- NOTE | 2020-02-20 10:57 | P.PN_ITS ---
Subjective Subjective: Interval history: She is felling better today.Has no nausea,vomitting,no rip hematuria, deny any chest pain, sob. Vitals: Stable Labs: Fall in Hb: 6.6 Medications: Reviewed: Yes Vitals/I&O/Wt Last Vital Signs Temp 97.6 F 02/20/20 09:26 Pulse 93 02/20/20 09:26 Resp 20 H 02/20/20 09:26 BP 144/79 02/20/20 09:26 Pulse Ox 97 02/20/20 09:26 02/19/20 02/20/20 02/20/20 22:59 06:59 14:59 Intake Total 1000 / 1400 0 / 0 Output Total 450 / 450 Balance 1000 / 1400 -450 / 950 0 / 0 Weight last 48 hrs Weight 47.582 kg Weight 47.673 kg Weight 47.627 kg Physical Exam Const: COMMON NORMALS: patient oriented x3 HENMT: COMMON NORMALS: normocephalic, atraumatic, hearing grossly normal bilaterally and external ears normal HEAD & SCALP: normocephalic and atraumatic EXTERNAL EAR: Yes external ears normal Eye: COMMON NORMALS: no scleral icterus GENERAL EYE: appearance normal, both eyes and all related structures Chest: COMMONS NORMALS: normal inspection of the chest and normal palpation of entire chest wall CHEST: Yes Symmetrical chest wall rise Resp: COMMON NORMALS: normal respiratory effort, No retractions, No use of accessory muscles and clear to auscultation bilaterally EFFORT & INSPECTION: Yes symmetric chest movement AUSCULTATION: clear to auscultation bilaterally Cardio: COMMON NORMALS: regular rate, regular rhythm, S1 normal heart sound present, S2 normal heart sound present, No gallops present (Cardio), No murmurs present (Cardio), No rub (Cardio) and Peripheral pulses 2+ throughout RATE: regular rate RHYTHM: regular rhythm HEART SOUNDS: S1 normal heart sound present and S2 normal heart sound present PERIPHERAL PULSES: Peripheral pulses 2+ throughout GI: COMMON NORMALS: Normal to inspection, nondistended, normoactive bowel sounds present, Soft to palpation, non-tender, No hepatosplenomegaly present and no masses AUSCULTATION: Yes normoactive bowel sounds PALPATION: Yes Soft to palpation and Yes No hepatosplenomegaly present RECTAL EXAM: deferred Extremity: COMMON NORMALS: no clubbing, cyanosis or edema and no pedal edema Neuro: COMMON NORMALS: patient oriented x3 Data : 02/20/20 05:08 02/20/20 05:08 Micro: Microbiology 02/18/20 22:33 Urine Culture - Preliminary Urine,Clean Catch Gram Negative Rods Gram Negative Rods#2 02/19/20 00:35 Blood Culture - Preliminary Blood NEGATIVE TO DATE 02/19/20 00:35 Blood Culture - Preliminary Blood NEGATIVE TO DATE 02/19/20 10:31 Occult Blood (FIT) - Final Stool Routine Collection A&P Assessment and plan (1) Anemia: Significant anemia. stool Hemoccult:Positive: EGD and Colonscopy was discussed as a part of anemia work up and age appropiate screening ( Colonscopy ). She wants to be done as outpatient. She reports hematuria. Repeat U/A ,Prior urinalysis was not impressive for blood.If Significant painless hematuria persist then she will need outpatient cystoscopy for bladder cancer workup as C.T abdomen and pelvis : has failed to show Renal pathology. S/P 3 U packed red blood cells. haptoglobin:207 Protonix 40 mg twice daily IV Avoid all anti-inflammatories Status: Acute Qualifiers: Anemia type: iron deficiency Iron deficiency anemia type: chronic blood loss Qualified Code(s): D50.0 - Iron deficiency anemia secondary to blood loss (chronic) (2) Cystitis, acute: Rocephin 1 g IV every 12 hours Await urine culture Status: Acute (3) Hyponatremia: Monitor BMP TSH:2.51 Status: Acute (4) Hypokalemia: Supplement Status: Acute (5) Alcohol abuse: Monitor for withdrawal, [facility] protocol Thiamine, folate Status: Acute (6) Smoker: Counseling Status: Acute (7) CAD (coronary artery disease): Holding Plavix, aspirin secondary to severe anemia. Will need to reinitiate aspirin when hemoglobin is stable and bleeding risk is less Continue metoprolol, statin ECHO Status: Chronic Qualifiers: Coronary Disease-Associated Artery/Lesion type: unspecified vessel or l esion type [place] vs. transplanted heart: [place] heart Associated angina: without angina Qualified Code(s): I25.10 - Atherosclerotic heart disease of [place] coronary artery without angina pectoris (8) Essential hypertension: Continue metoprolol Status: Chronic (9) Hyperlipidemia: Continue statin Status: Acute Qualifiers: Hyperlipidemia type: mixed hyperlipidemia Qualified Code(s): E78.2 - Mixed hyperlipidemia (10) Hypomagnesemia: Serum Magnesium : 1.5 Likely 2/2 to chronic alcoholism Magnesium sulfate 4mg I.V * 1 DOSE Status: Acute Additional A&P Information Full code SCDs for DVT prophylaxis Attestations Medical Necessity Statement*: She needs to be in hospital for management of Severe symptomatic anemia. Coding Level of Care Code Acute Senior Reservations Agent for Chg Fwd Diagnoses Anemia D50.0 Anemia type: iron deficiency Iron deficiency anemia type: chronic blood loss Cystitis, acute N30.00 Hyponatremia E87.1 Hypokalemia E87.6 Alcohol abuse F10.10 Smoker F17.200 CAD (coronary artery disease) I25.10 Coronary Disease-Associated Artery/Lesion type: unspecified vessel or lesion type [place] vs. transplanted heart: [place] heart Associated angina: without angina Essential hypertension I10 Hyperlipidemia E78.2 Hyperlipidemia type: mixed hyperlipidemia Hypomagnesemia E83.42
[2020-02-20] MEDS: FUROsemide 20 mg Tablet PO (12:33)
[2020-02-20] MEDS: potassium chloride ER 10 mEq Tablet 40 MEQ PO (12:33)
[2020-02-20] MEDS: fixodent 39 gm Tube 1 APPLIC DENTAL ×2 (13:26→13:32)
[2020-02-20] MEDS: cefTRIAXone 1,000 MG in sodium chloride 0.9% (plus) 50 ML 100 MG IV ×2 (15:22→23:26)
[2020-02-20 15:53] LABS: Osmolality Urine 247 mOsm/kg (50-1200)
[2020-02-20] MEDS: magnesium sulfate premix 4 GM/100 ML PREMIX IV (16:41)
[2020-02-20] MEDS: sodium chloride 0.9% (100 ml) 100 ML (17:00)
--- NOTE | 2020-02-20 17:01 | PC.RESP ---
Smoking Cessation information sent to patient.
--- NOTE | 2020-02-20 19:55 | PC.NURSE ---
Pt received two units of PRBCs today during day shift. She tolerated the transfusions well; vitals stable throughout. See paper flowsheet for documentation of transfusion vitals, which is in the paper chart.
[2020-02-20] MEDS: atorvastatin 40 mg Tablet 80 MG PO (20:23)
[2020-02-20 20:33] LABS: Protein Urine 1+ (Negative); Specific Gravity, Urine 1.015 (1.005-1.030); Urine Appearance Cloudy (CLEAR); Urine Color Red (Yellow)
[2020-02-20 20:34] LABS: Bilirubin Urine Neg (Negative); Blood Urine 3+ (Negative); Glucose Urine UA Norm (Normal); Ketones Urine Negative (Negative); Leukocyte Esterase Urine 1+ (Negative); Nitrate Urine Negative (Negative); RBC Urine 40-50 /hpf (0-2); Squamous Epithelial Cell Urine 0-4 /hpf (0-5); Urobilinogen Urine Norm (Negative); WBC Urine 25-40 /hpf (0-5)
[2020-02-20 20:35] LABS: Add Urine Culture? No; Bacteria Urine 2+ /hpf
[2020-02-20] MEDS: hyDROXYzine 25 mg Capsule PO (22:12)
[2020-02-21 00:41] VITALS: BP 135/82; PULSE 93; RESP 17; TEMP 35.9; O2SAT 97
[2020-02-21] MEDS: TRAMadol 50 mg Tablet PO ×2 (02:13→09:20)
[2020-02-21] MEDS: pantoprazole 40 mg SDV IVP (02:48)
[2020-02-21 04:12] VITALS: BP 158/94; PULSE 102; RESP 18; TEMP 36.8; O2SAT 98
[2020-02-21 05:38] LABS: Basophils % 0.6 %; Eosinophils # 0.1 10^3/uL (0.0-0.8); Eosinophils % 1.9 %; Lymphocytes # 0.9 10^3/uL (0.8-4.8); Lymphocytes % 15.1 %; Mean Corpuscular HGB Conc 34.6 g/dL (30.0-36.0); Mean Corpuscular Hemoglobin 30.1 pg (28.0-34.0); Mean Platelet Volume 8.7 fL (7.4-10.4); Monocytes # 0.5 10^3/uL (0.2-0.9); Monocytes % 8.3 %; Neutrophils # 4.51 10^3/uL (1.8-7.7); Neutrophils % 72.5 %; Nucleated Red Blood Cells % 0 %; Platelet Count 152 10^3/cmm (130-400); Red Blood Count 3.89 10^6/uL (4.1-5.3); Red Cell Distribution Width 19.2 % (12.1-15.1); White Blood Count 6.2 10^3/uL (4.0-10.0)
[2020-02-21 05:45] LABS: Anion Gap 13.9 (5-19); Blood Urea Nitrogen 4 mg/dL (6-20); Calcium 8.3 mg/dL (8.5-10.5); Carbon Dioxide 20 mmol/L (22-29); Chloride 90 mmol/L (98-107); Glomerular Filtration Rate 232.7 mL/min (90-130); Glucose 116 mg/dL (65-115); Osmolality Calculated 248 mOsm/kg (285-295); Potassium 3.9 mmol/L (3.5-5.1); Sodium 120 mmol/L (136-145)
[2020-02-21 05:46] LABS: Hematocrit 33.8 % (37.0-47.0); Hemoglobin 11.7 g/dL (11.5-15.3); Mean Corpuscular Volume 86.9 fL (81-99)
--- NOTE | 2020-02-21 05:57 | PC.NURSE ---
SHIFT SUMMARY Has been awake most of the night. Was given Hydroxyzine po X1 after call to per pt request for sleeping meds. Was unhappy that he did not reorder the Trazadone and Amitryptyllin that she says she takes. Also c/os back pain and receives po Tramadol for. She says this does not work for very long. Urine pink with occ tiny clot noted. Denies any other urinary symptoms. H/H very good this am.
--- NOTE | 2020-02-21 07:08 | PC.NURSE ---
BURN Pt spilled hot water on her bed this morning. Has been using warm salt water to rinse sore mouth. Mouth sore from dentures. Stated water hit her left knee and fingers on left hand. Earle pink but no blistering noted. Applied [place] ointment to areas and day shift nurse aware
[2020-02-21 08:00] VITALS: BP 150/95; PULSE 92; RESP 20; TEMP 36.7; O2SAT 98
[2020-02-21] MEDS: BuSPIRONE 10 mg Tablet PO (09:21)
[2020-02-21] MEDS: thiamine 100 mg Tablet PO (09:21)
[2020-02-21] MEDS: multivitamin therapeutic Tablet 1 TAB PO (09:21)
[2020-02-21] MEDS: metoprolol tartrate 25 mg Tablet 12.5 MG PO (09:21)
[2020-02-21] MEDS: folic acid 1 mg Tablet PO (09:21)
--- NOTE | 2020-02-21 09:41 | PC.CHAP ---
Pastoral Care Encounter/Spiritual Assessment Type of Contact [] Declined acute care nursing assistant visit [] Patient/Family/Request visit [] Outpatient visit [] Follow-up visit [] Physician referral [] Code/Alert [] Routine visit [] Staff referral [] Actively dying [x] Patient sleeping [] Family support [] [] Out of room [] Palliative care [] [] Receiving care in room [] Pre-surgical visit [] Trauma [] Long length of stay [] ICU visit [] Other: Relational/Emotional Strength [] Patient feels connected with others/family/visitors/staff [] Distress [] Loneliness/isolation [] Abandonment Spirituality of Patient [] Person of Estefany [] Attends Hinduism of their Estefany [] Believes in Prayer [] Reads Bible or Mormon materials [] There are Spiritual issues to be addressed Odd Job Laborer Interventions [] Prayer [] Active listening [] Non-anxious presence [] Spiritual/emotional support [] Crisis/trauma care [] Spiritual counseling [] Bereavement support [] Provided bereavement packet [] Provided Bible/devotional materials [] Provided toy/stuffed animal, coloring book to patient or family member [] Provided Communion [] Anointing/[place] [] Salvation [] Completed spiritual assessment [] Other: Impact on Illness or Injury [] Angry [] Fearful [] Anxious [] Often cries [] Exhaustion [] Unable to work [] Unable to attend taoist [] Unable to walk/stand [] Unable to read [] Unable to drive [] Unable to eat/drink [] Unable to sleep [] Unable to be with family [] Patient intubated [] Other: Summary Time spent with patient
--- NOTE | 2020-02-21 10:01 | P.DS_ITS ---
Discharge Providers Date of Admission: 02/19/20 00:22 Date of Discharge: February 21, 2020 Attending Provider at Admission: Veronica Armenta Attending Provider at Discharge: Brian Jj MD Diagnoses at Discharge Discharge Diagnosis (1) Anemia: Status: Chronic Qualifiers: Anemia type: iron deficiency Iron deficiency anemia type: chronic blood loss Qualified Code(s): D50.0 - Iron deficiency anemia secondary to blood loss (chronic) (2) Cystitis, acute: Status: Resolved (3) Hyponatremia: Status: Chronic (4) Hypokalemia: Status: Resolved (5) Alcohol abuse: Status: Acute (6) Smoker: Status: Acute (7) CAD (coronary artery disease): Status: Chronic Qualifiers: Associated angina: without angina Coronary Disease-Associated Artery/Lesion type: unspecified vessel or lesion type [place] vs. transplanted heart: [place] heart Qualified Code(s): I25.10 - Atherosclerotic heart disease of [place] coronary artery without angina pectoris (8) Essential hypertension: Status: Chronic (9) Hyperlipidemia: Status: Chronic Qualifiers: Hyperlipidemia type: mixed hyperlipidemia Qualified Code(s): E78.2 - Mixed hyperlipidemia (10) Hypomagnesemia: Status: Resolved Reason for Visit Reason for Visit: back pain/ blood in urine Hospital Course Hospital Course: 54-year-old female with a past medical history significant for hypertension, coronary artery disease status post PCI/stent, dyslipidemia, tobacco abuse and chronic alcoholism who presented to the hospital with back pain and hematuria.She was admitted and managed for cystitis/ pyleonephritis as well for anemia likely 2/2 to ACD 2/2 chronic alcohol abuse. Her FOBT was positive ,she was offered age appropriate screening colonscopy as well as EGD to r/o possible G.I Bleed as a cause of her anemia or any underlying malignancy.She wants to get it done as outpatient. will follow the patient as outpatient.For her hematuria repeat U/A ass outpatient after completing her ABX course as well as possibly cystoscopy given her smoking history and painless hematuria.She will see as outpatient for further work up of hematuria.She has chronic asymptomatic hyponatremia likley 2/2 to long standing alcohol abuse.She is completely asymptomatic now with regards to hyponatremia.She will continue to take salt tab as outpaient.She was on ceftriaxone while inpatient and is being discharged on augmentin 500-125 q12 h daily for 7 days as urine culture has shown E.Coli as well as Kleb.Pneu sensitive to augmentin .Blood culture is negative. At the time of discharge she was not complaining of any urinary symptoms.She is being discharged in stable condition. 2DEcho:02/19 Normal left ventricular size and systolic function, EF 55%. Mild left ventricular hypertrophy. No regional wall motion abnormalities. Mildly increased left atrial size.Mild tricuspid valve regurgitation. Estimated pulmonary artery peak systolic pressure 32 mmHg. Trace mitral valve regurgitation. There is no pericardial effusion. There are no intracardiac masses. CT Abdomen And Pelvis Without Contrast: 02/17: 1. There is mild thickening of the bladder wall and diffuse haziness seen along the serosal margin of the bladder, findings that could represent cystitis. 2. Strandy opacities are seen in the right perinephric fascia possibly representing scarring although inflammatory changes and pyelonephritis cannot be entirely excluded. 3. Edematous bowel wall pattern of the cecum and ascending colon, findings that could represent colitis. 4. Fatty infiltration of the liver 5. 1.1 mm nonobstructing left renal calculus 6. Normal appendix: Physical Exam Const: COMMON NORMALS: patient oriented x3 HENMT: COMMON NORMALS: normocephalic, atraumatic, hearing grossly normal bilaterally and external ears normal HEAD & SCALP: normocephalic and atraumatic EXTERNAL EAR: Yes external ears normal Eye: COMMON NORMALS: no scleral icterus GENERAL EYE: appearance normal, both eyes and all related structures Chest: COMMONS NORMALS: normal inspection of the chest and normal palpation of entire chest wall CHEST: Yes Symmetrical chest wall rise Resp: COMMON NORMALS: normal respiratory effort, No retractions, No use of accessory muscles and clear to auscultation bilaterally EFFORT & INSPECTION: Yes symmetric chest movement AUSCULTATION: clear to auscultation bilaterally Cardio: COMMON NORMALS: regular rate, regular rhythm, S1 normal heart sound present, S2 normal heart sound present, No gallops present (Cardio), No murmurs present (Cardio), No rub (Cardio) and Peripheral pulses 2+ throughout RATE: regular rate RHYTHM: regular rhythm HEART SOUNDS: S1 normal heart sound present and S2 normal heart sound present PERIPHERAL PULSES: Peripheral pulses 2+ throughout GI: COMMON NORMALS: Normal to inspection, nondistended, normoactive bowel sounds present, Soft to palpation, non-tender, No hepatosplenomegaly present and no masses AUSCULTATION: Yes normoactive bowel sounds PALPATION: Yes Soft to palpation and Yes No hepatosplenomegaly present RECTAL EXAM: deferred Extremity: COMMON NORMALS: no clubbing, cyanosis or edema and no pedal edema Neuro: COMMON NORMALS: patient oriented x3 Discharge Data Data Completed and Pending: Completed Studies During Hospitalization Category Date Time Status CT kidney stone [id number] Urgent Cat Scan 02/18/20 22:38 Completed CV echo complete* [id number] Routine Ultrasound 02/20/20 10:53 Completed Pending at discharge Category Date Time Status Basic Metabolic P naomi AM LABS Lab 02/22/20 04:00 Ordered Basic Metabolic P naomi AM LABS Lab 02/23/20 04:00 Ordered Blood Culture Sta t Lab 02/19/20 00:35 Results Complete Blood Co unt w/Auto AM LABS Lab 02/22/20 04:00 Ordered Complete Blood Co unt w/Auto AM LABS Lab 02/23/20 04:00 Ordered Labs from last 24 hours 02/21/20 02/21/20 02/20/20 05:05 05:05 18:40 WBC 6.2 RBC 3.89 L Hgb 11.7 D Hct 33.8 L D MCV 86.9 D MCH 30.1 MCHC 34.6 RDW 19.2 H Plt Count 152 MPV 8.7 Neut % (Auto) 72.5 Lymph % (Auto) 15.1 [place] % (Auto) 8.3 Eos % (Auto) 1.9 Baso % (Auto) 0.6 Neut # (Auto) 4.51 Lymph # (Auto) 0.9 [place] # (Auto) 0.5 Eos # (Auto) 0.1 Baso # (Auto) 0.0 Nucleated RBC % (a uto) 0 Nucleated RBCs # 0.0 Sodium 120 L Potassium 3.9 Chloride 90 L Carbon Dioxide 20 L Anion Gap 13.9 BUN 4 L Creatinine 0.3 L GFR Calculation 232.7 H Glucose 116 H Calculated Osmolal ity 248 L Calcium 8.3 L Urine Color Red Urine Appearance Cloudy A Urine pH 5.0 Ur Specific Gravit y 1.015 Urine Protein 1+ H Urine Glucose (UA) Norm Urine Ketones Negative Urine Blood 3+ H Urine Nitrate Negative Urine Bilirubin Neg Urine Urobilinogen Norm Ur Leukocyte Honey ase 1+ H Urine RBC 40-50 H Urine WBC 25-40 H Ur Squamous Epith Cells 0-4 H Amorphous Sediment Not Reportable Urine Bacteria 2+ H Urine Osmolality Blood Type Rho(D) Type Antibody Screen Crossmatch 02/19/20 02/18/20 00:35 22:33 WBC RBC Hgb Hct MCV MCH MCHC RDW Plt Count MPV Neut % (Auto) Lymph % (Auto) [place] % (Auto) Eos % (Auto) Baso % (Auto) Neut # (Auto) Lymph # (Auto) [place] # (Auto) Eos # (Auto) Baso # (Auto) Nucleated RBC % (a uto) Nucleated RBCs # Sodium Potassium Chloride Carbon Dioxide Anion Gap BUN Creatinine GFR Calculation Glucose Calculated Osmolal ity Calcium Urine Color Urine Appearance Urine pH Ur Specific Gravit y Urine Protein Urine Glucose (UA) Urine Ketones Urine Blood Urine Nitrate Urine Bilirubin Urine Urobilinogen Ur Leukocyte Honey ase Urine RBC Urine WBC Ur Squamous Epith Cells Amorphous Sediment Urine Bacteria Urine Osmolality 247 Blood Type A Positive Rho(D) Type Positive Antibody Screen Negative Crossmatch See Detail Vitals: Last Vital Signs Temp 98.0 F 02/21/20 08:00 Pulse 92 02/21/20 08:00 Resp 20 H 02/21/20 08:00 BP 150/95 02/21/20 08:00 Pulse Ox 98 02/21/20 08:00 Discharge Plan Discharge Patient Disposition: Home Condition: Stable Prescriptions: New atorvastatin 40 mg tablet 40 mg PO DAILY Qty: 30 RF: 0 atorvastatin 40 mg tablet 40 mg PO DAILY Qty: 30 RF: 0 Multiple Vitamins Tablet 1 tab PO DAILY Qty: 30 RF: 0 tramadol 50 mg tablet 50 mg PO Q12H PRN (Reason: pain) Qty: 7 RF: 0 Augmentin 500-125 mg tablet 1 tab PO Q12H Qty: 14 RF: 0 Continued aspirin [Adult Aspirin Regimen] 81 mg tablet,delayed release (DR/EC) 81 mg PO DAILY RF: 0 nitroglycerin 0.4 mg tablet, sublingual 0.4 mg SUBLINGUAL Q5M PRN (Reason: Chest Pain) RF: 0 metoprolol tartrate 25 mg tablet 12.5 mg PO BID Qty: 90 RF: 0 buspirone 10 mg tablet 10 mg PO TID 90 Days Qty: 270 RF: 1 methocarbamol 500 mg tablet 500 mg PO DAILY PRN (Reason: back spasm) Qty: 90 RF: 1 Lutein Blue 1 cap PO DAILY RF: 0 MegaRed [place]-3 Krill Oil 1 cap PO DAILY RF: 0 Vitamin C 1 tab PO DAILY RF: 0 clopidogrel 75 mg tablet 75 mg PO DAILY RF: 0 Discontinued atorvastatin 80 mg tablet 80 mg PO DAILY Qty: 90 RF: 0 Discharge Orders: Discharge Order (Routine); Ordered 02/21/20 Ordered By: Brian Jj Referrals: Denny Forrester MD [Physician] - 02/23/20 9:00 am (For Routine colonscopy as well as for possible EGD as par of anemia work up) Trevin Aguillon MD [Physician] - 1 week ( For hematuria work up .DR AGUILLON OFFICE WILL CALL WITH APPOINTMENT [phone]) Discharge Diet: Usual diet Discharge Activity: Resume usual activity Patient Instructions: Alcohol Abuse, Tramadol (By mouth), Atorvastatin (By mouth), Levofloxacin (By mouth), How to Stop Smoking (GEN), Urinary Tract Infection in Women (GEN) Discharge Date/Time: 02/21/20 13:00 Discharge Attestations Time Spent in Discharge Care*: greater than 30 min Specific Discharge Activities: Specific discharge activities: educating patien t, educating and/or supporting family/caregiver, discussing with pcp/other providers, discussing with window caser/social workers/dc planners, documenting/other paperwork and evaluating patient/reviewing data Time Spent in Smoking Cessation: Time spent discussing smoking cessation with patient: 3 to 10 minutes Status at Discharge: Cognitive status at discharge: cognitively intact , Behavioral status at discharge: cooperative , Functional status at discharge: independent ambulation Overall status at discharge: patient is back to baseline Quality Metrics Clinical Quality Measures During this hospital stay, did patient experience: None Coding Level of Care Code Acute Ledge Man for Chg Fwd Exam Comprehensive Diagnoses Anemia D50.0 Anemia type: iron deficiency Iron deficiency anemia type: chronic blood loss Cystitis, acute N30.00 Hyponatremia E87.1 Hypokalemia E87.6 Alcohol abuse F10.10 Smoker F17.200 CAD (coronary artery disease) I25.10 Associated angina: without angina Coronary Disease-Associated Artery/Lesion type: unspecified vessel or lesion type [place] vs. transplanted heart: [place] heart Essential hypertension I10 Hyperlipidemia E78.2 Hyperlipidemia type: mixed hyperlipidemia Hypomagnesemia E83.42
[2020-02-21 11:22] VITALS: BP 138/88; PULSE 80; RESP 18; TEMP 36.4; O2SAT 97
[2020-02-21] MEDS: sodium chloride 1 gm Tablet PO (12:29)
--- NOTE | 2020-02-21 13:42 | PC.NURSE ---
Discharge instructions provided; all questions answered. Paperwork signed by patient. Home medications retrieved from [facility] and returned to pt. All belongings gathered and sent with patient. IV and cafeteria monitor removed. Pt was assisted to hospital entrance via wheelchair, and into private vehicle where her mother was waiting. No s/s distress; pt denied any concerns or needs at time of discharge.
== END 2020-02-21 13:00 | disposition home or self-care (01) | DRG 690 ==
LOC: ER 02-19 01:03 → MEDSURG 02-19 01:48
PROVIDERS: Emergency Medicine; Internal Medicine; Nurse Practitioner Family; Admitting Provider Hospitalist; Visit Provider Internal Medicine
DX: N30.00 Acute cystitis without hematuria (principal); E87.1 Hypo-osmolality and hyponatremia; I25.10 Atherosclerotic heart disease of native coronary artery without angina pectoris; D50.0 Iron deficiency anemia secondary to blood loss (chronic); E87.6 Hypokalemia; F17.210 Nicotine dependence, cigarettes, uncomplicated; E78.2 Mixed hyperlipidemia; E83.42 Hypomagnesemia; I10 Essential (primary) hypertension; Z95.5 Presence of coronary angioplasty implant and graft; F10.20 Alcohol dependence, uncomplicated; Z79.02 Long term (current) use of antithrombotics/antiplatelets; Z79.82 Long term (current) use of aspirin; R31.9 Hematuria, unspecified
CPT/HCPCS: 12345; 36415; 36430; 74176; 80048; 80053; 80307; 81001; 82274; 82550; 82728; 83010; 83540; 83550; 83690; 83735; 83935; 84300; 84443; 85014; 85018; 85025; 85610; 86850; 86900; 86920; 87040; 87077; 87086; 87186; 93306; 96372; 96375; 97161; 99283; C9113; J0610; J0696; J1885; J3411; J3475; J7030; P9016

== ENCOUNTER 2020-11-16 14:12 | Observation (INO) | payer MEDICAID, SELFPAY ==
--- NOTE | 2020-11-16 14:30 | XR_ITS ---
WS: [id number] XR chest 1V portable [id number] REASON FOR EXAM: palpitations FINDINGS: Normal heart and mediastinum. Calcification in the aortic arch and mild tortuosity of the thoracic ao rta without aneurysmal dilatation. Calcified granulomatous changes in both lungs. No acute pulmonary parenchymal or pleural abnormality is noted. Ovoid density projecting between the left third and fourth ribs laterally represents an art ifact not within the lung. Thoracic scoliosis convex right. XR/XR chest 1V portable [id number] IMPRESSION: No acute lung abnormality.
[2020-11-16 15:00] VITALS: BP 150/97; PULSE 130; RESP 15; TEMP 37.4; O2SAT 99; BMI 17.9
[2020-11-16 15:08] LABS: Basophils # 0.1 10^3/uL (0.0-0.1); Basophils % 0.8 %; Eosinophils % 0.1 %; Hematocrit 29.5 % (37.0-47.0); Hemoglobin 9.7 g/dL (11.5-15.3); Lymphocytes % 13.7 %; Mean Corpuscular HGB Conc 32.9 g/dL (30.0-36.0); Mean Corpuscular Hemoglobin 34.2 pg (28.0-34.0); Mean Corpuscular Volume 103.9 fL (81-99); Mean Platelet Volume 9.2 fL (7.4-10.4); Monocytes # 0.6 10^3/uL (0.2-0.9); Neutrophils # 5.41 10^3/uL (1.8-7.7); Nucleated Red Blood Cells % 0 %; Platelet Count 288 10^3/cmm (130-400); Red Blood Count 2.84 10^6/uL (4.1-5.3); Red Cell Distribution Width 14.6 % (12.1-15.1); White Blood Count 7.1 10^3/uL (4.0-10.0)
[2020-11-16 15:36] LABS: Troponin T (5th) Once 7 ng/L (0-10)
[2020-11-16 15:37] LABS: Alanine Aminotransferase 15 U/L (0-33); Albumin Level 4.2 g/dL (3.5-5.2); Alkaline Phosphatase 198 IU/L (35-105); Aspartate Amino Transferase 61 U/L (0-32); Blood Urea Nitrogen 5 mg/dL (6-20); Calcium 8.8 mg/dL (8.5-10.5); Carbon Dioxide 21 mmol/L (22-29); Chloride 83 mmol/L (98-107); Globulin 2.6 g/dL (1.3-4.6); Glomerular Filtration Rate 231.8 mL/min (90-130); Glucose 101 mg/dL (65-115); Osmolality Calculated 255 mOsm/kg (285-295); Sodium 124 mmol/L (136-145); Total Protein 6.8 g/dL (6.6-8.7)
[2020-11-16] MEDS: sodium chloride 0.9% 500 ML 999 ML IV (16:10)
--- NOTE | 2020-11-16 16:32 | ED_ITS ---
HPI - Chest Pain General: Chief Complaint: Chest Pain Stated Complaint: FAST HEART RATE/ POSSIBLE COVID Time Seen by Provider: 11/16/20 14:17 History of Present Illness: HPI narrative: 55-year-old female presents emergency room with complaint of rapid heart rate. She thinks she may have Covid as well. She has not been immunized. She had an episode of chest pain today she took 1 nitro and that relieved it she has not had any further chest pain since she denies any fever sweats or chills she does not have any associated nausea vomiting with that she did have radiation of the pain up into her neck. She has had coronary artery disease and had a stent placed within the last couple years while at [facility]. She had some heart failure issues in the past but has had them but not had any recent orthopnea or leg edema. On arrival in the ER she is tachycardic. Patient has been a heavy drinker in the past states her last drink was a couple of days ago. 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 [employer] Onset (ago): hour(s) Timing of current episode: episodic Prior episodes: Yes Onset: during rest Pain location: left chest Pain radiation: left arm and left shoulder Quality: tightness and heaviness Relieving factors: nothing Exacerbating factors: nothing Associated symptoms: Reports dyspnea, nausea and palpitations; Deny abdominal pain, diaphoresis, fever(s), leg edema, sense of impending doom, syncope or vomiting Review of Systems Const: Denies: fever(s) or diaphoresis ENMT: Denies: throat pain, ear or mastoid pain, nasal discharge or nasal congestion Card: Reports: palpitations; Denies: syncope Resp: Reports: dyspnea GI: Reports: nausea; Denies: abdominal pain or vomiting : Denies: flank pain, difficulty voiding, dysuria, urinary frequency or urinary urgency Skin/Breast: Denies: rash or pruritus PFSH ED PFSH: Medical History Acute anemia Alcohol abuse Anemia CAD (coronary artery disease) Colitis Cystitis, acute Essential hypertension Hematuria Hyperlipidemia Hypokalemia Hypomagnesemia Hyponatremia Smoker UTI (urinary tract infection) Surgical History Hx of heart artery stent Hx of oral surgery Hx of tubal ligation Social History Smoking and tobacco status: current every day smoker Alcohol intake: current Alcohol intake frequency: few times a week Alcohol type: hard liquor Desire information about alcohol rehabilitation?: No Counseling given: Yes Last alcohol use date: 11/14/20 Other details last alcohol use: 2-3 shots of vodka Household members: friend(s) Housing: Apartment Physical Exam Const: COMMON NORMALS: no acute distress GENERAL APPEARANCE: cooperative and comfortable ORIENTATION/CONSCIOUSNESS: Yes awake, Yes oriented to person, Yes oriented to place and Yes oriented to time HENMT: COMMON NORMALS: normocephalic, atraumatic and hearing grossly normal bilaterally HEAD & SCALP: normocephalic and atraumatic Neck/C-Spine: COMMON NORMALS: no JVD Resp: COMMON NORMALS: normal respiratory effort, No retractions, No use of accessory muscles and clear to auscultation bilaterally AUSCULTATION: clear to auscultation bilaterally Cardio: COMMON NORMALS: no JVD, regular rhythm and No murmurs present (Cardio) RATE: tachycardic RHYTHM: regular rhythm GI: COMMON NORMALS: Soft to palpation and No hepatosplenomegaly present AUSCULTATION: Yes normoactive bowel sounds PALPATION: Yes Soft to palpation, No Tenderness to palpation present (GI), No Guarding due to palpation present (GI) and Yes No hepatosplenomegaly present Extremity: COMMON NORMALS: normal to inspection, capillary refill normal, no clubbing, cyanosis or edema, no calf tenderness and no pedal edema Neuro: SENSORIUM/ORIENTATION: Yes oriented to person, Yes oriented to place and Yes oriented to time Skin: COMMON NORMALS: no rashes or lesions noted GENERAL SKIN EXAM: no rashes or lesions noted Course Vital Signs: Vital signs: Vital Signs Temperature 98.1 F 11/17/20 15:57 Pulse Rate 100 11/17/20 15:57 Respiratory Rate 24 H 11/17/20 15:57 Blood Pressure 146/86 11/17/20 15:57 Pulse Oximetry 100 11/17/20 15:57 MDM - Chest Pain MDM Narrative: Medical decision making narrative: Discussed with hospitalist. Given her history of heart disease and her chest pain on presentation we will go ahead and place her in observation serial troponins further evaluation will need to get records of her coronary artery interventions in the past she is also hyponatremic which will need to be addressed. Tox urine tox and alcohol pending Lab Data: Labs: Lab Results 11/16/20 11/16/20 11/16/20 Range/Units 14:00 14:00 14:00 WBC 7.1 (4.0-10.0) 10^3/ uL RBC 2.84 L (4.1-5.3) 10^6/u L Hgb 9.7 L (11.5-15.3) g/dL Hct 29.5 L (37.0-47.0) % MCV 103.9 H (81-99) fL MCH 34.2 H (28.0-34.0) pg MCHC 32.9 (30.0-36.0) g/dL RDW 14.6 (12.1-15.1) % Plt Count 288 (130-400) 10^3/c mm MPV 9.2 (7.4-10.4) fL Neut % (Auto) 76.0 % Lymph % (Auto) 13.7 % [place] % (Auto) 9.0 % Eos % (Auto) 0.1 % Baso % (Auto) 0.8 % Neut # (Auto) 5.41 (1.8-7.7) 10^3/u L Lymph # (Auto) 1.0 (0.8-4.8) 10^3/u L [place] # (Auto) 0.6 (0.2-0.9) 10^3/u L Eos # (Auto) 0.0 (0.0-0.8) 10^3/u L Baso # (Auto) 0.1 (0.0-0.1) 10^3/u L Nucleated RBC % (a uto) 0 % Nucleated RBCs # 0.0 /100WBC Sodium 124 L (136-145) mmol/L Potassium 3.0 L (3.5-5.1) mmol/L Chloride 83 L (98-107) mmol/L Carbon Dioxide 21 L (22-29) mmol/L Anion Gap 23.0 H (5-19) BUN 5 L (6-20) mg/dL Creatinine 0.3 L (0.5-0.9) mg/dL GFR Calculation 231.8 H (90-130) mL/min Glucose 101 (65-115) mg/dL Calculated Osmolal ity 255 L (285-295) mOsm/k g Calcium 8.8 (8.5-10.5) mg/dL Iron (37-145) ug/dL TIBC mcg/dl % Saturation (20-50) % Unsat Iron Binding (112-347) ug/dL Total Bilirubin 2.0 H (0.15-1.2) mg/dL AST 61 H (0-32) U/L ALT 15 (0-33) U/L Alkaline Phosphata se 198 H (35-105) IU/L Troponin T Gen 5 n g/L 7 (0-10) ng/L Troponin T Baselin e (0-10) ng/L NT-Pro-B Natriuret Pep (0-125) pg/mL Total Protein 6.8 (6.6-8.7) g/dL Albumin 4.2 (3.5-5.2) g/dL Globulin 2.6 (1.3-4.6) g/dL Vitamin B12 (232-1245) pg/mL Folate (4.8-37.3) ng/mL Procalcitonin (0-0.5) ng/mL TSH (0.27-4.20) uIU/ mL Ethyl Alcohol (0-10) mg/dL Hepatitis A IgM Ab (Nonreactive) Hep Bs Antigen (Nonreactive) Hep Bs Antibody (11.5-1000) Hep B Core Total A b (Nonreactive) Hepatitis C Antibo dy (Nonreactive) HIV 1&2 Ab & HIV 1 Ag (Non-Reactiv) HIV 1&2 Antibody (Non-Reactiv) SARS-CoV-2 Ag (Rap id) (Negative) 11/16/20 11/16/20 11/16/20 Range/Units 14:00 14:00 16:10 WBC (4.0-10.0) 10^3/ uL RBC (4.1-5.3) 10^6/u L Hgb (11.5-15.3) g/dL Hct (37.0-47.0) % MCV (81-99) fL MCH (28.0-34.0) pg MCHC (30.0-36.0) g/dL RDW (12.1-15.1) % Plt Count (130-400) 10^3/c mm MPV (7.4-10.4) fL Neut % (Auto) % Lymph % (Auto) % [place] % (Auto) % Eos % (Auto) % Baso % (Auto) % Neut # (Auto) (1.8-7.7) 10^3/u L Lymph # (Auto) (0.8-4.8) 10^3/u L [place] # (Auto) (0.2-0.9) 10^3/u L Eos # (Auto) (0.0-0.8) 10^3/u L Baso # (Auto) (0.0-0.1) 10^3/u L Nucleated RBC % (a uto) % Nucleated RBCs # /100WBC Sodium (136-145) mmol/L Potassium (3.5-5.1) mmol/L Chloride (98-107) mmol/L Carbon Dioxide (22-29) mmol/L Anion Gap (5-19) BUN (6-20) mg/dL Creatinine (0.5-0.9) mg/dL GFR Calculation (90-130) mL/min Glucose (65-115) mg/dL Calculated Osmolal ity (285-295) mOsm/k g Calcium (8.5-10.5) mg/dL Iron (37-145) ug/dL TIBC mcg/dl % Saturation (20-50) % Unsat Iron Binding (112-347) ug/dL Total Bilirubin (0.15-1.2) mg/dL AST (0-32) U/L ALT (0-33) U/L Alkaline Phosphata se (35-105) IU/L Troponin T Gen 5 n g/L (0-10) ng/L Troponin T Baselin e (0-10) ng/L NT-Pro-B Natriuret Pep 378 H (0-125) pg/mL Total Protein (6.6-8.7) g/dL Albumin (3.5-5.2) g/dL Globulin (1.3-4.6) g/dL Vitamin B12 671 (232-1245) pg/mL Folate 13.5 (4.8-37.3) ng/mL Procalcitonin (0-0.5) ng/mL TSH (0.27-4.20) uIU/ mL Ethyl Alcohol (0-10) mg/dL Hepatitis A IgM Ab (Nonreactive) Hep Bs Antigen (Nonreactive) Hep Bs Antibody (11.5-1000) Hep B Core Total A b (Nonreactive) Hepatitis C Antibo dy (Nonreactive) HIV 1&2 Ab & HIV 1 Ag (Non-Reactiv) HIV 1&2 Antibody (Non-Reactiv) SARS-CoV-2 Ag (Rap id) (Negative) 11/16/20 11/16/20 11/16/20 Range/Units 16:10 16:10 16:10 WBC (4.0-10.0) 10^3/ uL RBC (4.1-5.3) 10^6/u L Hgb (11.5-15.3) g/dL Hct (37.0-47.0) % MCV (81-99) fL MCH (28.0-34.0) pg MCHC (30.0-36.0) g/dL RDW (12.1-15.1) % Plt Count (130-400) 10^3/c mm MPV (7.4-10.4) fL Neut % (Auto) % Lymph % (Auto) % [place] % (Auto) % Eos % (Auto) % Baso % (Auto) % Neut # (Auto) (1.8-7.7) 10^3/u L Lymph # (Auto) (0.8-4.8) 10^3/u L [place] # (Auto) (0.2-0.9) 10^3/u L Eos # (Auto) (0.0-0.8) 10^3/u L Baso # (Auto) (0.0-0.1) 10^3/u L Nucleated RBC % (a uto) % Nucleated RBCs # /100WBC Sodium (136-145) mmol/L Potassium (3.5-5.1) mmol/L Chloride (98-107) mmol/L Carbon Dioxide (22-29) mmol/L Anion Gap (5-19) BUN (6-20) mg/dL Creatinine (0.5-0.9) mg/dL GFR Calculation (90-130) mL/min Glucose (65-115) mg/dL Calculated Osmolal ity (285-295) mOsm/k g Calcium (8.5-10.5) mg/dL Iron (37-145) ug/dL TIBC mcg/dl % Saturation (20-50) % Unsat Iron Binding (112-347) ug/dL Total Bilirubin (0.15-1.2) mg/dL AST (0-32) U/L ALT (0-33) U/L Alkaline Phosphata se (35-105) IU/L Troponin T Gen 5 n g/L (0-10) ng/L Troponin T Baselin e 7 (0-10) ng/L NT-Pro-B Natriuret Pep (0-125) pg/mL Total Protein (6.6-8.7) g/dL Albumin (3.5-5.2) g/dL Globulin (1.3-4.6) g/dL Vitamin B12 (232-1245) pg/mL Folate (4.8-37.3) ng/mL Procalcitonin (0-0.5) ng/mL TSH (0.27-4.20) uIU/ mL Ethyl Alcohol < 10 (0-10) mg/dL Hepatitis A IgM Ab (Nonreactive) Hep Bs Antigen (Nonreactive) Hep Bs Antibody (11.5-1000) Hep B Core Total A b (Nonreactive) Hepatitis C Antibo dy (Nonreactive) HIV 1&2 Ab & HIV 1 Ag (Non-Reactiv) HIV 1&2 Antibody (Non-Reactiv) SARS-CoV-2 Ag (Rap id) Negative (Negative) 11/16/20 11/16/20 11/16/20 Range/Units 16:10 16:10 16:10 WBC (4.0-10.0) 10^3/ uL RBC (4.1-5.3) 10^6/u L Hgb (11.5-15.3) g/dL Hct (37.0-47.0) % MCV (81-99) fL MCH (28.0-34.0) pg MCHC (30.0-36.0) g/dL RDW (12.1-15.1) % Plt Count (130-400) 10^3/c mm MPV (7.4-10.4) fL Neut % (Auto) % Lymph % (Auto) % [place] % (Auto) % Eos % (Auto) % Baso % (Auto) % Neut # (Auto) (1.8-7.7) 10^3/u L Lymph # (Auto) (0.8-4.8) 10^3/u L [place] # (Auto) (0.2-0.9) 10^3/u L Eos # (Auto) (0.0-0.8) 10^3/u L Baso # (Auto) (0.0-0.1) 10^3/u L Nucleated RBC % (a uto) % Nucleated RBCs # /100WBC Sodium (136-145) mmol/L Potassium (3.5-5.1) mmol/L Chloride (98-107) mmol/L Carbon Dioxide (22-29) mmol/L Anion Gap (5-19) BUN (6-20) mg/dL Creatinine (0.5-0.9) mg/dL GFR Calculation (90-130) mL/min Glucose (65-115) mg/dL Calculated Osmolal ity (285-295) mOsm/k g Calcium (8.5-10.5) mg/dL Iron 183 H (37-145) ug/dL TIBC 252 mcg/dl % Saturation 72.6 H (20-50) % Unsat Iron Binding 69 L (112-347) ug/dL Total Bilirubin (0.15-1.2) mg/dL AST (0-32) U/L ALT (0-33) U/L Alkaline Phosphata se (35-105) IU/L Troponin T Gen 5 n g/L (0-10) ng/L Troponin T Baselin e (0-10) ng/L NT-Pro-B Natriuret Pep (0-125) pg/mL Total Protein (6.6-8.7) g/dL Albumin (3.5-5.2) g/dL Globulin (1.3-4.6) g/dL Vitamin B12 (232-1245) pg/mL Folate (4.8-37.3) ng/mL Procalcitonin 0.26 (0-0.5) ng/mL TSH 3.52 (0.27-4.20) uIU/ mL Ethyl Alcohol (0-10) mg/dL Hepatitis A IgM Ab (Nonreactive) Hep Bs Antigen (Nonreactive) Hep Bs Antibody (11.5-1000) Hep B Core Total A b (Nonreactive) Hepatitis C Antibo dy (Nonreactive) HIV 1&2 Ab & HIV 1 Ag Non-reactive (Non-Reactiv) HIV 1&2 Antibody Non-reactive (Non-Reactiv) SARS-CoV-2 Ag (Rap id) (Negative) 11/16/20 Range/Units 16:10 WBC (4.0-10.0) 10^3/ uL RBC (4.1-5.3) 10^6/u L Hgb (11.5-15.3) g/dL Hct (37.0-47.0) % MCV (81-99) fL MCH (28.0-34.0) pg MCHC (30.0-36.0) g/dL RDW (12.1-15.1) % Plt Count (130-400) 10^3/c mm MPV (7.4-10.4) fL Neut % (Auto) % Lymph % (Auto) % [place] % (Auto) % Eos % (Auto) % Baso % (Auto) % Neut # (Auto) (1.8-7.7) 10^3/u L Lymph # (Auto) (0.8-4.8) 10^3/u L [place] # (Auto) (0.2-0.9) 10^3/u L Eos # (Auto) (0.0-0.8) 10^3/u L Baso # (Auto) (0.0-0.1) 10^3/u L Nucleated RBC % (a uto) % Nucleated RBCs # /100WBC Sodium (136-145) mmol/L Potassium (3.5-5.1) mmol/L Chloride (98-107) mmol/L Carbon Dioxide (22-29) mmol/L Anion Gap (5-19) BUN (6-20) mg/dL Creatinine (0.5-0.9) mg/dL GFR Calculation (90-130) mL/min Glucose (65-115) mg/dL Calculated Osmolal ity (285-295) mOsm/k g Calcium (8.5-10.5) mg/dL Iron (37-145) ug/dL TIBC mcg/dl % Saturation (20-50) % Unsat Iron Binding (112-347) ug/dL Total Bilirubin (0.15-1.2) mg/dL AST (0-32) U/L ALT (0-33) U/L Alkaline Phosphata se (35-105) IU/L Troponin T Gen 5 n g/L (0-10) ng/L Troponin T Baselin e (0-10) ng/L NT-Pro-B Natriuret Pep (0-125) pg/mL Total Protein (6.6-8.7) g/dL Albumin (3.5-5.2) g/dL Globulin (1.3-4.6) g/dL Vitamin B12 (232-1245) pg/mL Folate (4.8-37.3) ng/mL Procalcitonin (0-0.5) ng/mL TSH (0.27-4.20) uIU/ mL Ethyl Alcohol (0-10) mg/dL Hepatitis A IgM Ab Non-reactive (Nonreactive) Hep Bs Antigen Non-reactive (Nonreactive) Hep Bs Antibody 3.5 L (11.5-1000) Hep B Core Total A b Non-reactive (Nonreactive) Hepatitis C Antibo dy Non-reactive (Nonreactive) HIV 1&2 Ab & HIV 1 Ag (Non-Reactiv) HIV 1&2 Antibody (Non-Reactiv) SARS-CoV-2 Ag (Rap id) (Negative) Discharge Plan Discharge Patient Disposition: Admitted As Inpatient Admit Provider: Norbert Stearns Clinical Impression: Palpitations, Atypical chest pain, Anemia, Hypokalemia Condition: Stable Discharge Diet: Regular Discharge Activity: Resume usual activity Coding Level of Care Code 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
[2020-11-16 16:59] LABS: SARS Covid-2 Antigen Negative (Negative)
[2020-11-16] MEDS: metoprolol tartrate 1 mg/1 mL SDV 5 mL 2.5 MG IV (17:21)
[2020-11-16] MEDS: metoprolol tartrate 25 mg Tablet PO (17:21)
[2020-11-16] MEDS: LORazepam 1 mg Tablet PO (17:21)
[2020-11-16 17:22] VITALS: BP 163/93; PULSE 114; RESP 18; O2SAT 94
[2020-11-16 17:22] LABS: NT Pro B Type Natriuretic Pept 378 pg/mL (0-125)
--- NOTE | 2020-11-16 17:33 | ECG_ITS ---
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
[2020-11-16 18:00] VITALS: BP 111/84; PULSE 96; RESP 16; O2SAT 96
[2020-11-16 18:03] LABS: Troponin(5th) Baseline 7 ng/L (0-10)
[2020-11-16 18:11] LABS: Alcohol Level < 10 mg/dL (0-10)
[2020-11-16] MEDS: potassium chloride ER 20 mEq Tablet 80 MEQ PO (18:42)
--- NOTE | 2020-11-16 19:33 | ECG_ITS ---
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
[2020-11-16 20:06] LABS: Iron 183 ug/dL (37-145)
[2020-11-16 20:08] LABS: Procalcitonin 0.26 ng/mL (0-0.5)
[2020-11-16 20:11] LABS: Thyroid Stimulating Hormone 3.52 uIU/mL (0.27-4.20)
[2020-11-16 20:17] VITALS: BP 119/78; PULSE 89; RESP 16; O2SAT 99
[2020-11-16 20:21] LABS: Troponin 5 2HR 9.25 ng/L (0-10); Troponin 5 2HR Delta 2.25 ABS# (0-10)
[2020-11-16 21:44] LABS: HIV 1 & 2 Antibody Non-Reactive (Non-Reactiv); HIV 1 & 2 Antigen Non-Reactive (Non-Reactiv)
[2020-11-16 21:58] LABS: Hepatitis A Antibody IgM Non-Reactive (Nonreactive); Hepatitis B Core AB, Total Non-Reactive (Nonreactive); Hepatitis B Surface AB 3.5 (11.5-1000); Hepatitis B Surface Antigen Non-Reactive (Nonreactive); Hepatitis C Virus Antibody Non-Reactive (Nonreactive)
[2020-11-16 22:05] LABS: Percent Saturation 72.6 % (20-50); Total Iron Binding Capacity 252 mcg/dl; Unsaturated Iron Binding 69 ug/dL (112-347)
--- NOTE | 2020-11-16 22:59 | P.HP_ITS ---
Providers/Chief Complaint Admitting Physician: Norbert Stearns MD Chief Complaint: FAST HEART RATE/ POSSIBLE COVID History of Present Illness Sugar Cassidy is a 55 year old female with a past medical history significant for hypertension, coronary artery disease status post PCI/stent, dyslipidemia, tobacco abuse and chronic alcoholism who presented to the ER today complaining of palpitations and chest pressure for now since today morning. Patient states she has had the symptoms on and off since March but never so bad. Denies any aggravating or relieving factors. Complaining of occasional shortness of breath and cough. Denies any nausea, vomiting, headache, diarrhea, dizziness. States last she had alcohol was 2 days ago on her birthday when she had 2-3 shots of vodka. Patient is evasive about her alcohol use. She states she only drinks when offered by a friend, drinks 3-4 times a week. Denies any hallucinations, cold sweats, headache. She is also concerned of having COVID- 19. She is not vaccinated for COVID-19. 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 Patel. Denies any changes in medication recently. On presentation to the ER patient had a heart rate of 130. Currently her heart rate is running in the 90s with saturation of 98% on room air. Blood work in the ER showed a white count of 7.1, hemoglobin of 9.7, platelet count of 288, chemistry showing a sodium of 124, potassium of 3, chloride of 83, bicarb of 21, creatinine of 0.3, AST/ALT of 61/15 with a bilirubin of 2 with alkaline phosphatase of 198, baseline troponin of 7 with 2-hour delta of 3, proBNP of 378. I have requested ER for alcohol level and drug screen. Review of Systems General: Reports: 10 or more systems reviewed and unremarkable except in HPI and below Const: Denies: fever(s), chills, body aches, change in appetite, change in weight, malaise, night sweats, diaphoresis, change in sleep pattern, daytime sleepiness or snoring Eyes: Denies: change in vision, blurry vision, photophobia, eye discomfort or eye discharge ENMT: Denies: throat pain, enlarged tonsils, hoarseness, mouth pain, oral sores, dry mouth, tinnitus, nasal congestion or post nasal drip Card: Denies: chest pain, palpitations, irregular heart rhythm, edema, swelling of feet/ankles, lightheadedness, syncope, pre-syncope, dyspnea on exertion, orthopnea, leg pain with exertion or acrocyanosis Resp: Denies: dyspnea, productive cough, non-productive cough, wheezing, stridor, pain on inspiration, change in phlegm color, hemoptysis or chest congestion GI: Denies: abdominal pain, nausea, vomiting, hematemesis, coffee ground emesis, dysphagia, heartburn, diarrhea, constipation, bloating, GI cramping, change in bowel habits, pain on defecation, hematochezia or melena : Denies: flank pain, dysuria, urinary frequency, urinary urgency, urinary hesitancy, nocturia or hematuria Musc: Denies: neck pain, back pain, extremity pain, joint pain, joint swelling, joint redness, joint stiffness or limited range of motion Neuro: Denies: headache(s), numbness in extremities, weakness in extremities, sensory changes, lack of coordination, difficulty walking, frequent falls, dizziness, vertigo, confusion, Slurred speech present, difficulty communicating thoughts or seizure-like activity Psych: Denies: anxiety, depression, mood swings, panic attacks, hopelessness or irritability Endo: Denies: polyuria, polydipsia, tired all the time, cold intolerance, excessive sweating, flushing or heat intolerance Michael/Lymph: Denies: easy bruising or easy bleeding All/Imm: Denies: tongue swelling, facial swelling or acute wheezing Medications/Allergies Home Medications Medication Instructions Recorded Confirmed Last Taken Type aspirin 81 mg tablet,delayed 81 mg PO DAILY 06/10/19 11/16/20 11/16/20 History release nitroglycerin 0.4 mg sublingual 0.4 mg SUBLINGUAL Q5M PRN 06/10/19 11/16/20 11/16/20 History tablet buspirone 10 mg tablet 10 mg PO TID 90 Days #270 tab 02/14/20 11/16/20 11/16/20 Rx Vitamin C 1 tab PO DAILY 02/19/20 11/16/20 11/16/20 History atorvastatin 40 mg PO DAILY #30 tab 02/21/20 11/16/20 Unknown Rx tramadol 50 mg PO Q12H PRN #7 tab 02/21/20 11/16/20 Unknown Rx amlodipine 5 mg PO DAILY 11/16/20 11/16/20 11/16/20 History ergocalciferol (vitamin D2) 50,000 unit PO Q7D 11/16/20 11/16/20 11/14/20 History folic acid 1 mg PO DAILY 11/16/20 11/16/20 11/16/20 History methocarbamol 750 mg PO DAILY PRN 11/16/20 11/16/20 11/16/20 History potassium 99 mg PO DAILY 11/16/20 11/16/20 11/16/20 History thiamine HCl (vitamin B1) 50 mg PO DAILY 11/16/20 11/16/20 11/16/20 History trazodone 50 mg PO DAILY 11/16/20 11/16/20 Unknown History trazodone 100 mg PO DAILY 11/16/20 11/16/20 Unknown History Allergies Allergy/AdvReac Type Severity Reaction Status Date / Time No Known Allergies Allergy Verified 02/19/20 09:41 PFSH Acute PFSH: Medical History (Updated 11/16/20 @ 23:15 by Norbert Stearns MD) Anemia CAD (coronary artery disease) Colitis Cystitis, acute Essential hypertension Hematuria Hyperlipidemia Hypokalemia Hypomagnesemia Hyponatremia Smoker UTI (urinary tract infection) Surgical History (Updated 11/16/20 @ 23:15 by Norbert Stearns MD) Hx of heart artery stent Hx of oral surgery Hx of tubal ligation Social History (Updated 11/16/20 @ 23:16 by Norbert Stearns MD) Smoking and tobacco status: current every day smoker Alcohol intake: current Alcohol intake frequency: few times a week Alcohol type: hard liquor Desire information about alcohol rehabilitation?: No Counseling given: Yes Last alcohol use date: 11/14/20 Other details last alcohol use: 2-3 shots of vodka Household members: friend(s) Housing: Apartment Vitals/I&O/Wt Last Vital Signs Temp 99.4 F 11/16/20 15:00 Pulse 89 11/16/20 20:17 Resp 16 11/16/20 20:17 BP 119/78 11/16/20 20:17 Pulse Ox 99 11/16/20 20:17 Weight last 48 hrs Weight 45.813 kg Physical Exam Narrative: EXAM NARRATIVE: General: No acute distress, AO x3 HEENT: PERRLA, pupils bilaterally equal and reactive Chest: Normal vesicular breath sounds, no added sounds, equal good air entry bilaterally CVS: S1-S2 regular, no murmurs, no tachycardia, no gallops, no rubs Abdomen: Soft, nontender, no organomegaly, bowel sounds present Neuro: No focal deficits, no facial deformity, AO x3, power 5/5 in all limbs Data : 11/16/20 14:00 11/16/20 14:00 A&P Assessment and plan (1) Palpitations: Status: Acute (2) Chest pain: Status: Acute (3) CAD (coronary artery disease): Status: Acute Qualifiers: Coronary Disease-Associated Artery/Lesion type: unspecified vessel or lesion type [place] vs. transplanted heart: [place] heart Associated angina: without angina Qualified Code(s): I25.10 - Atherosclerotic heart disease of [place] coronary artery without angina pectoris (4) Hyponatremia: Status: Acute (5) Hypokalemia: Status: Acute (6) Essential hypertension: Status: Acute (7) Acute anemia: Status: Acute (8) Alcohol abuse: Status: Acute Additional A&P Information Palpitations: Could be secondary to atrial fibrillation. Check EKG. TSH. Echocardiogram done in February 2020 shows an EF of 55% with LVH, mild LA enlargement with a PASP of 22. Telemetry. Will monitor for atrial fibrillation. Start on metoprolol 25 mg twice daily. Will uptitrate accordingly. CAD: Post PCI: Came in complaining of chest pain. Most likely secondary to gastritis from alcohol abuse but given history of CAD, current smoking will admit for further evaluation. -Troponins and EKG. If significant we will consult cardiology and most likely a stress test on Thursday. Continue other chronic medications including aspirin, statin, nitro as needed. Alcohol abuse: [facility] protocol. Banana bag. Oral folic acid, thiamine. Hypertension: Goal blood pressure less than 140/90 mmHg. Continue with home medication of amlodipine at 5 mg daily. Hyponatremia: Chronic. Most likely from chronic alcohol abuse. Baseline seems to be running between 05 09-05 14. Sodium level is at baseline. Check urine lites Hypokalemia: Again because of alcohol abuse. Replete with 80 mEq oral potassium. Transaminitis/hyperbilirubinemia: Most likely from alcohol abuse. Check hepatitis panel, HIV. Check HbA1c, iron panel, vitamin B12, folate level, lipid panel, alcohol level, urine drug screen Full code. Cardiac diet. Famotidine for PUD prophylaxis. Maalox as needed. Bowel regimen. Attestations Medical Necessity Statement*: Anticipate admission for less than 2 midnights under observation for evaluation of palpitation and chest pressure with history of alcohol abuse and CAD Time Spent in Patient Care: Greater than 35 minutes (>than 50% of time spent in counselling and/or direct pt care on unit) . Coding Level of Care Code Acute Communication Assistant for Chg Fwd Diagnoses Palpitations R00.2 Chest pain R07.9 CAD (coronary artery disease) I25.10 Coronary Disease-Associated Artery/Lesion type: unspecified vessel or lesion type [place] vs. transplanted heart: [place] dehe heart Associated angina: without angina Hyponatremia E87.1 Hypokalemia E87.6 Essential hypertension I10 Acute anemia D64.9 Alcohol abuse F10.10
[2020-11-16 23:05] LABS: Troponin 5 6HR 10.24 ng/L (0-10); Troponin 5 6HR Delta 3.24 ng/L (0-12)
--- NOTE | 2020-11-16 23:33 | ECG_ITS ---
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 [employer]ic: : [id number] Requested By: Jameson Cisse Order Number: [id number] Reading MD: ZAN PENALOZA Measurements Intervals [place] Rate: 91 P: 29 CO: 129 QRS: 60 QRSD: 159 T: 65 QT: 389 QTc: 481 Interpretive Statements SINUS RHYTHM INTRAVENTRICULAR CONDUCTION DELAY [130+ ms QRS DURATION] Compared to ECG 11/16/2020 15:13:42 Intraventricular conduction delay now present Sinus tachycardia no longer present T-wave abnormality no longer present Possible ischemia no longer present Electronically Signed On 11-17-2020 20:31:21 CDT by ZAN PENALOZA [id number]
[2020-11-16 23:57] VITALS: BP 122/74; PULSE 96; RESP 18; O2SAT 96
[2020-11-17] VITALS (7 sets, daily range): BP systolic 139–146; BP diastolic 79–87; PULSE 80–102; RESP 16–32; TEMP 36.7–36.8; O2SAT 99–100
--- NOTE | 2020-11-17 00:04 | PC.NURSE ---
report to Sheri CHUNG
--- NOTE | 2020-11-17 00:30 | PC.NURSE ---
Patient received from ED via wheelchair. Ambulated from chair to bed ad nidhi. Patient denies chest pain or other discomforts at this time. CIWA performed. Patient is anxious but cooperative. Medications administered as ordered.
[2020-11-17] MEDS: folic acid 1 MG, multivitamin inj 10 ML, thiamine 100 MG in sodium chloride 0.9% 1,000 ML 252.8 MG IV (00:32)
[2020-11-17] MEDS: BuSPIRONE 10 mg Tablet PO ×3 (00:32→15:11)
[2020-11-17] MEDS: ferrous gluconate 324 mg Tablet PO ×2 (00:33→08:18)
[2020-11-17] MEDS: sodium chloride 0.9% 1,000 ML 50 ML IV (00:33)
[2020-11-17] MEDS: LORazepam 2 mg Tablet PO (00:33)
[2020-11-17] MEDS: enoxaparin 40 mg/0.4 mL Syringe SUBCUT (00:33)
[2020-11-17 00:36] LABS: Folate Level 13.5 ng/mL (4.8-37.3)
[2020-11-17 00:37] LABS: Vitamin B12 671 pg/mL (232-1245)
[2020-11-17 03:34] LABS: Amphetamines Screen Urine Negative (Negative); Barbiturates Screen Urine Negative (Negative); Benzodiazepines Screen Urine Positive (Negative); Cocaine Screen Urine Negative (Negative); Opiate Screen Urine Negative (Negative); PCP Screen Urine Negative (Negative); THC Screen Urine Negative (Negative)
[2020-11-17 03:47] LABS: Potassium, Radom Urine 9 mmol/L; Urine Random Chloride 36 mmol/L; Urine Random Sodium 44 mmol/L
[2020-11-17 03:51] LABS: Bilirubin Urine Neg (Negative); Blood Urine Neg (Negative); Glucose Urine UA Norm (Normal); Ketones Urine Negative (Negative); Nitrate Urine Positive (Negative); Protein Urine Neg (Negative); Sulfosalicylic Acid Urine Negative (Negative); Urine Appearance SL Hazy (CLEAR); Urine Color Yellow (Yellow); pH Urine 8 (5-7)
[2020-11-17 03:52] LABS: Add Urine Culture? Yes; Add Urine Microscopic? YES; Bacteria Urine 4+ /hpf; Leukocyte Esterase Urine 2+ (Negative); RBC Urine 0-4 /hpf (0-2); Squamous Epithelial Cell Urine 0-4 /hpf (0-5); Urobilinogen Urine 1 mg/dL (Negative); WBC Urine 25-40 /hpf (0-5)
[2020-11-17 05:16] LABS: Basophils % 1.1 %; Eosinophils # 0.1 10^3/uL (0.0-0.8); Eosinophils % 1.6 %; Hematocrit 25.3 % (37.0-47.0); Hemoglobin 7.8 g/dL (11.5-15.3); Lymphocytes # 1.1 10^3/uL (0.8-4.8); Lymphocytes % 30.4 %; Mean Corpuscular HGB Conc 30.8 g/dL (30.0-36.0); Mean Corpuscular Hemoglobin 34.2 pg (28.0-34.0); Mean Platelet Volume 9.2 fL (7.4-10.4); Monocytes # 0.4 10^3/uL (0.2-0.9); Monocytes % 10.6 %; Neutrophils # 2.06 10^3/uL (1.8-7.7); Nucleated Red Blood Cells % 0 %; Platelet Count 210 10^3/cmm (130-400); Red Blood Count 2.28 10^6/uL (4.1-5.3); Red Cell Distribution Width 14.7 % (12.1-15.1); White Blood Count 3.7 10^3/uL (4.0-10.0)
[2020-11-17 06:05] LABS: Alanine Aminotransferase 10 U/L (0-33); Albumin Level 3.2 g/dL (3.5-5.2); Alkaline Phosphatase 137 IU/L (35-105); Anion Gap 14.5 (5-19); Aspartate Amino Transferase 51 U/L (0-32); Blood Urea Nitrogen 4 mg/dL (6-20); Calcium 7.7 mg/dL (8.5-10.5); Carbon Dioxide 20 mmol/L (22-29); Chloride 104 mmol/L (98-107); Globulin 2.5 g/dL (1.3-4.6); Glomerular Filtration Rate 231.8 mL/min (90-130); Glucose 77 mg/dL (65-115); Magnesium 1.2 mg/dL (1.7-2.3); Osmolality Calculated 276 mOsm/kg (285-295); Potassium 3.5 mmol/L (3.5-5.1); Sodium 135 mmol/L (136-145); Total Bilirubin 1.7 mg/dL (0.15-1.2); Total Protein 5.7 g/dL (6.6-8.7)
[2020-11-17 07:49] LABS: Chol HDL Ratio 6.36 mg/dL (0.0-4.40); Cholesterol 89 mg/dL (0-200); Creatine Phosphokinase 29 U/L (26-192); HDL Cholesterol 14 mg/dL (60-100); LDL Cholesterol Calculated 48 mg/dL (50-129); Triglycerides 133 mg/dL (0-150); VLDL Cholestrol Calculation 27 mg/dL (0-30)
[2020-11-17 08:04] LABS: Ferritin 1278 ng/mL (15-150)
[2020-11-17] MEDS: folic acid 1 mg Tablet PO (08:17)
[2020-11-17] MEDS: amlodipine 10 mg Tablet PO (08:17)
[2020-11-17] MEDS: multivitamin therapeutic Tablet 1 TAB PO (08:17)
[2020-11-17] MEDS: ascorbic acid 500 mg Tablet PO (08:17)
[2020-11-17] MEDS: atorvastatin 40 mg Tablet PO (08:18)
[2020-11-17] MEDS: metoprolol tartrate 50 mg Tablet 25 MG PO (08:18)
[2020-11-17] MEDS: aspirin 81 mg EC Tablet PO (08:18)
[2020-11-17] MEDS: famotidine 20 mg Tablet PO (08:18)
[2020-11-17] MEDS: thiamine 100 mg Tablet PO (08:18)
--- NOTE | 2020-11-17 14:18 | P.DS_ITS ---
Discharge Providers Date of Admission: 11/16/20 17:35 Date of Discharge: November 17, 2020 Attending Provider at Admission: Norbert Stearns MD Attending Provider at Discharge: Norbert Stearns MD Diagnoses at Discharge Discharge Diagnosis (1) Palpitations: Status: Acute (2) Chest pain: Status: Acute (3) CAD (coronary artery disease): Status: Acute Qualifiers: Coronary Disease-Associated Artery/Lesion type: unspecified vessel or lesion type [place] vs. transplanted heart: [place] heart Associated angina: without angina Qualified Code(s): I25.10 - Atherosclerotic heart disease of [place] coronary artery without angina pectoris (4) Hyponatremia: Status: Acute (5) Hypokalemia: Status: Acute (6) Essential hypertension: Status: Acute (7) Acute anemia: Status: Acute (8) Alcohol abuse: Status: Acute Reason for Visit Reason for Visit: FAST HEART RATE/ POSSIBLE COVID Hospital Course Hospital Course Sugar Cassidy is a 55 year old female with a past medical history significant for hypertension, coronary artery disease status post PCI/stent, dyslipidemia, tobacco abuse and chronic alcoholism who presented to the ER today complaining of palpitations and chest pressure for now since today morning. Patient states she has had the symptoms on and off since March but never so bad. Denies any aggravating or relieving factors. Complaining of occasional shortness of breath and cough. Denies any nausea, vomiting, headache, diarrhea, dizziness. States last she had alcohol was 2 days ago on her birthday when she had 2-3 shots of vodka. Patient is evasive about her alcohol use. She states she only drinks when offered by a friend, drinks 3-4 times a week. Denies any hallucinations, cold sweats, headache. She is also concerned of having COVID- 19. She is not vaccinated for COVID-19. She states she follows up with a clinical radiologist up in [place] by name Dr. Patel. Denies any changes in medication recently. On presentation to the ER patient had a heart rate of 130. Currently her heart rate is running in the 90s with saturation of 98% on room air. Blood work in the ER showed a white count of 7.1, hemoglobin of 9.7, platelet count of 288, chemistry showing a sodium of 124, potassium of 3, chloride of 83, bicarb of 21, creatinine of 0.3, AST/ALT of 61/15 with a bilirubin of 2 with alkaline phosphatase of 198, baseline troponin of 7 with 2-hour delta of 3, proBNP of 378. Alcohol level negative, urine drug screen negative hepatitis panel, HIV negative. Rapid COVID-19 antigen was negative. Patient was admitted to the hospital for further evaluation and management of chest pain with history of CAD. When hospitalized patient did not have any further symptoms. During hospitalization troponin trend remained negative. On admission she was found to have hyponatremia, hypokalemia and she was dehydrated. She was started on IV fluids and her electrolytes were repleted. It is believed patient's symptoms are most likely secondary to anemia CAD and electrolyte abnormalities are secondary to chronic alcohol abuse. Her vitamin B12, iron level checked. She was given 1 unit of blood transfusion. On review of chart patient had history of stool positive for heme in the past and she has not had an EGD or colonoscopy ever. Patient was advised to have an EGD while in hospital though she wanted to get it done at [facility] where all her other physicians are. Patient's urine was positive for nitrate and leukoesterase though she did not denied any symptoms of UTI. On review of her chart patient had urine culture positive in February 2024 E. coli and Pseudomonas both fairly sensitive to levofloxacin. Patient is been discharged hemodynamically stable condition after 1 L of blood transfusion on PPIs, new medication with metoprolol 50 mg twice daily with advice for cessation of alcohol abuse and with advised to follow-up with her clinical radiologist in [place] and to schedule for EGD and colonoscopy at earliest. Physical Exam Narrative: EXAM NARRATIVE: General: No acute distress, AO x3 HEENT: PERRLA, pupils bilaterally equal and reactive Chest: Normal vesicular breath sounds, no added sounds, equal good air entry bilaterally CVS: S1-S2 regular, no murmurs, no tachycardia, no gallops, no rubs Abdomen: Soft, nontender, no organomegaly, bowel sounds present Neuro: No focal deficits, no facial deformity, AO x3, power 5/5 in all limbs Discharge Data Data Completed and Pending: Completed Studies During Hospitalization Category Date Time Status XR chest 1V akhil ble [id number] Stat Exams 11/16/20 14:30 Completed Pending at discharge Category Date Time Status Bacterial Antigen Stat Lab 11/16/20 17:56 Ordered Hemoglobin A1C AM LABS Lab 11/17/20 04:38 Received Urine Culture Sta t Lab 11/17/20 03:15 Received Labs from last 24 hours 11/17/20 11/17/20 11/17/20 04:38 04:38 04:38 WBC 3.7 L RBC 2.28 L Hgb 7.8 L Hct 25.3 L MCV 111.0 H D MCH 34.2 H MCHC 30.8 D RDW 14.7 Plt Count 210 MPV 9.2 Neut % (Auto) 56.0 Lymph % (Auto) 30.4 [place] % (Auto) 10.6 Eos % (Auto) 1.6 Baso % (Auto) 1.1 Neut # (Auto) 2.06 Lymph # (Auto) 1.1 [place] # (Auto) 0.4 Eos # (Auto) 0.1 Baso # (Auto) 0.0 Nucleated RBC % (a uto) 0 Nucleated RBCs # 0.0 Sodium Potassium Chloride Carbon Dioxide Anion Gap BUN Creatinine GFR Calculation Glucose Estimat Average Gl ucose Pending Hemoglobin A1c Pending Calculated Osmolal ity Calcium Magnesium Iron TIBC % Saturation Unsat Iron Binding Ferritin 1278 H Total Bilirubin AST ALT Alkaline Phosphata se Creatine Kinase 29 Troponin T Gen 5 n g/L Troponin T Baselin e Troponin T 120 Min [place] Troponin T Troponin T Hi Sens 6Hr Troponin T Hi Sens 6Hr [place] NT-Pro-B Natriuret Pep Total Protein Albumin Globulin Triglycerides 133 Cholesterol 89 LDL Cholesterol, C alc 48 L Total VLDL Cholest gaurav 27 HDL Cholesterol 14 L Cholesterol/HDL Ra jenn 6.36 H Vitamin B12 Folate Procalcitonin TSH Urine Color Urine Appearance Urine pH Ur Specific Gravit y Urine Protein Urine Glucose (UA) Urine Ketones Urine Blood Urine Nitrate Urine Bilirubin Prot Sulfosalicyli c Acd Urine Urobilinogen Ur Leukocyte Honey ase Urine RBC Urine WBC Ur Squamous Epith Cells Amorphous Sediment Urine Bacteria Ur Random Sodium Ur Random Potassiu m Ur Random Chloride Urine Opiates Scre en Ur Barbiturates Sc reen Ur Phencyclidine S crn Ur Amphetamines Sc reen U Benzodiazepines Scrn Urine Cocaine Scre en U Marijuana (THC) Screen Ethyl Alcohol Hepatitis A IgM Ab Hep Bs Antigen Hep Bs Antibody Hep B Core Total A b Hepatitis C Antibo dy HIV 1&2 Ab & HIV 1 Ag HIV 1&2 Antibody SARS-CoV-2 Ag (Rap id) 11/17/20 11/17/20 11/17/20 04:38 03:15 03:15 WBC RBC Hgb Hct MCV MCH MCHC RDW Plt Count MPV Neut % (Auto) Lymph % (Auto) [place] % (Auto) Eos % (Auto) Baso % (Auto) Neut # (Auto) Lymph # (Auto) [place] # (Auto) Eos # (Auto) Baso # (Auto) Nucleated RBC % (a uto) Nucleated RBCs # Sodium 135 L Potassium 3.5 Chloride 104 Carbon Dioxide 20 L Anion Gap 14.5 BUN 4 L Creatinine 0.3 L GFR Calculation 231.8 H Glucose 77 Estimat Average Gl ucose Hemoglobin A1c Calculated Osmolal ity 276 L Calcium 7.7 L Magnesium 1.2 L Iron TIBC % Saturation Unsat Iron Binding Ferritin Total Bilirubin 1.7 H AST 51 H ALT 10 Alkaline Phosphata se 137 H Creatine Kinase Troponin T Gen 5 n g/L Troponin T Baselin e Troponin T 120 Min [place] Troponin T Troponin T Hi Sens 6Hr Troponin T Hi Sens 6Hr [place] NT-Pro-B Natriuret Pep Total Protein 5.7 L Albumin 3.2 L Globulin 2.5 Triglycerides Cholesterol LDL Cholesterol, C alc Total VLDL Cholest gaurav HDL Cholesterol Cholesterol/HDL Ra jenn Vitamin B12 Folate Procalcitonin TSH Urine Color Yellow Urine Appearance Sl hazy Urine pH 8 H Ur Specific Gravit y 1.010 Urine Protein Neg Urine Glucose (UA) Norm Urine Ketones Negative Urine Blood Neg Urine Nitrate Positive H Urine Bilirubin Neg Prot Sulfosalicyli c Acd Negative Urine Urobilinogen 1 H Ur Leukocyte Honey ase 2+ H Urine RBC 0-4 H Urine WBC 25-40 H Ur Squamous Epith Cells 0-4 H Amorphous Sediment Not Reportable Urine Bacteria 4+ H Ur Random Sodium 44 Ur Random Potassiu m 9 Ur Random Chloride 36 Urine Opiates Scre en Negative Ur Barbiturates Sc reen Negative Ur Phencyclidine S crn Negative Ur Amphetamines Sc reen Negative U Benzodiazepines Scrn Positive H Urine Cocaine Scre en Negative U Marijuana (THC) Screen Negative Ethyl Alcohol Hepatitis A IgM Ab Hep Bs Antigen Hep Bs Antibody Hep B Core Total A b Hepatitis C Antibo dy HIV 1&2 Ab & HIV 1 Ag HIV 1&2 Antibody SARS-CoV-2 Ag (Rap id) 11/16/20 11/16/20 11/16/20 22:15 19:27 16:10 WBC RBC Hgb Hct MCV MCH MCHC RDW Plt Count MPV Neut % (Auto) Lymph % (Auto) [place] % (Auto) Eos % (Auto) Baso % (Auto) Neut # (Auto) Lymph # (Auto) [place] # (Auto) Eos # (Auto) Baso # (Auto) Nucleated RBC % (a uto) Nucleated RBCs # Sodium Potassium Chloride Carbon Dioxide Anion Gap BUN Creatinine GFR Calculation Glucose Estimat Average Gl ucose Hemoglobin A1c Calculated Osmolal ity Calcium Magnesium Iron TIBC % Saturation Unsat Iron Binding Ferritin Total Bilirubin AST ALT Alkaline Phosphata se Creatine Kinase Troponin T Gen 5 n g/L Troponin T Baselin e Troponin T 120 Min [place] 9.25 Delta Troponin T 2.25 Troponin T Hi Sens 6Hr 10.24 H Troponin T Hi Sens 6Hr Delta 3.24 NT-Pro-B Natriuret Pep Total Protein Albumin Globulin Triglycerides Cholesterol LDL Cholesterol, C alc Total VLDL Cholest gaurav HDL Cholesterol Cholesterol/HDL Ra jenn Vitamin B12 Folate Procalcitonin TSH Urine Color Urine Appearance Urine pH Ur Specific Gravit y Urine Protein Urine Glucose (UA) Urine Ketones Urine Blood Urine Nitrate Urine Bilirubin Prot Sulfosalicyli c Acd Urine Urobilinogen Ur Leukocyte Honey ase Urine RBC Urine WBC Ur Squamous Epith Cells Amorphous Sediment Urine Bacteria Ur Random Sodium Ur Random [place]assiu m Ur Random Chloride Urine Opiates Scre en Ur Barbiturates Sc reen Ur Phencyclidine S crn Ur Amphetamines Sc reen U Benzodiazepines Scrn Urine Cocaine Scre en U Marijuana (THC) Screen Ethyl Alcohol Hepatitis A IgM Ab Non-reactive Hep Bs Antigen Non-reactive Hep Bs Antibody 3.5 L Hep B Core Total A b Non-reactive Hepatitis C Antibo dy Non-reactive HIV 1&2 Ab & HIV 1 Ag HIV 1&2 Antibody SARS-CoV-2 Ag (Rap id) 11/16/20 11/16/20 11/16/20 16:10 16:10 16:10 WBC RBC Hgb Hct MCV MCH MCHC RDW Plt Count MPV Neut % (Auto) Lymph % (Auto) [place] % (Auto) Eos % (Auto) Baso % (Auto) Neut # (Auto) Lymph # (Auto) [place] # (Auto) Eos # (Auto) Baso # (Auto) Nucleated RBC % (a uto) Nucleated RBCs # Sodium Potassium Chloride Carbon Dioxide Anion Gap BUN Creatinine GFR Calculation Glucose Estimat Average Gl ucose Hemoglobin A1c Calculated Osmolal ity Calcium Magnesium Iron 183 H TIBC 252 % Saturation 72.6 H Unsat Iron Binding 69 L Ferritin Total Bilirubin AST ALT Alkaline Phosphata se Creatine Kinase Troponin T Gen 5 n g/L Troponin T Baselin e Troponin T 120 Min [place] Troponin T Troponin T Hi Sens 6Hr Troponin T Hi Sens 6Hr [place] NT-Pro-B Natriuret Pep Total Protein Albumin Globulin Triglycerides Cholesterol LDL Cholesterol, C alc Total VLDL Cholest gaurav HDL Cholesterol Cholesterol/HDL Ra jenn Vitamin B12 Folate Procalcitonin 0.26 TSH 3.52 Urine Color Urine Appearance Urine pH Ur Specific Gravit y Urine Protein Urine Glucose (UA) Urine Ketones Urine Blood Urine Nitrate Urine Bilirubin Prot Sulfosalicyli c Acd Urine Urobilinogen Ur Leukocyte Honey ase Urine RBC Urine WBC Ur Squamous Epith Cells Amorphous Sediment Urine Bacteria Ur Random Sodium Ur Random [place] m Ur Random Chloride Urine Opiates Scre en Ur Barbiturates Sc reen Ur Phencyclidine S crn Ur Amphetamines Sc reen U Benzodiazepines Scrn Urine Cocaine Scre en U Marijuana (THC) Screen Ethyl Alcohol Hepatitis A IgM Ab Hep Bs Antigen Hep Bs Antibody Hep B Core Total A b Hepatitis C Antibo dy HIV 1&2 Ab & HIV 1 Ag Non-reactive HIV 1&2 Antibody Non-reactive SARS-CoV-2 Ag (Rap id) 11/16/20 11/16/20 11/16/20 16:10 16:10 16:10 WBC RBC Hgb Hct MCV MCH MCHC RDW Plt Count MPV Neut % (Auto) Lymph % (Auto) [place] % (Auto) Eos % (Auto) Baso % (Auto) Neut # (Auto) Lymph # (Auto) [place] # (Auto) Eos # (Auto) Baso # (Auto) Nucleated RBC % (a uto) Nucleated RBCs # Sodium Potassium Chloride Carbon Dioxide Anion Gap BUN Creatinine GFR Calculation Glucose Estimat Average Gl ucose Hemoglobin A1c Calculated Osmolal ity Calcium Magnesium Iron TIBC % Saturation Unsat Iron Binding Ferritin Total Bilirubin AST ALT Alkaline Phosphata se Creatine Kinase Troponin T Gen 5 n g/L Troponin T Baselin e 7 Troponin T 120 Min [place] Troponin T Troponin T Hi Sens 6Hr Troponin T Hi Sens 6Hr [place] NT-Pro-B Natriuret Pep Total Protein Albumin Globulin Triglycerides Cholesterol LDL Cholesterol, C alc Total VLDL Cholest gaurav HDL Cholesterol Cholesterol/HDL Ra jenn Vitamin B12 Folate Procalcitonin TSH Urine Color Urine Appearance Urine pH Ur Specific Gravit y Urine Protein Urine Glucose (UA) Urine Ketones Urine Blood Urine Nitrate Urine Bilirubin Prot Sulfosalicyli c Acd Urine Urobilinogen Ur Leukocyte Honey ase Urine RBC Urine WBC Ur Squamous Epith Cells Amorphous Sediment Urine Bacteria Ur Random Sodium Ur Random [place] m Ur Random Chloride Urine Opiates Scre en Ur Barbiturates Sc reen Ur Phencyclidine S crn Ur Amphetamines Sc reen U Benzodiazepines Scrn Urine Cocaine Scre en U Marijuana (THC) Screen Ethyl Alcohol < 10 Hepatitis A IgM Ab Hep Bs Antigen Hep Bs Antibody Hep B Core Total A b Hepatitis C Antibo dy HIV 1&2 Ab & HIV 1 Ag HIV 1&2 Antibody SARS-CoV-2 Ag (Rap id) Negative 11/16/20 11/16/20 11/16/20 16:10 14:00 14:00 WBC RBC Hgb Hct MCV MCH MCHC RDW Plt Count MPV Neut % (Auto) Lymph % (Auto) [place] % (Auto) Eos % (Auto) Baso % (Auto) Neut # (Auto) Lymph # (Auto) [place] # (Auto) Eos # (Auto) Baso # (Auto) Nucleated RBC % (a uto) Nucleated RBCs # Sodium Potassium Chloride Carbon Dioxide Anion Gap BUN Creatinine GFR Calculation Glucose Estimat Average Gl ucose Hemoglobin A1c Calculated Osmolal ity Calcium Magnesium Iron TIBC % Saturation Unsat Iron Binding Ferritin Total Bilirubin AST ALT Alkaline Phosphata se Creatine Kinase Troponin T Gen 5 n g/L Troponin T Baselin e Troponin T 120 Min [place] Troponin T Troponin T Hi Sens 6Hr Troponin T Hi Sens 6Hr [place] NT-Pro-B Natriuret Pep 378 H Total Protein Albumin Globulin Triglycerides Cholesterol LDL Cholesterol, C alc Total VLDL Cholest gaurav HDL Cholesterol Cholesterol/HDL Ra jenn Vitamin B12 671 Folate 13.5 Procalcitonin TSH Urine Color Urine Appearance Urine pH Ur Specific Gravit y Urine Protein Urine Glucose (UA) Urine Ketones Urine Blood Urine Nitrate Urine Bilirubin Prot Sulfosalicyli c Acd Urine Urobilinogen Ur Leukocyte Honey ase Urine RBC Urine WBC Ur Squamous Epith Cells Amorphous Sediment Urine Bacteria Ur Random Sodium Ur Random [place] m Ur Random Chloride Urine Opiates Scre en Ur Barbiturates Sc reen Ur Phencyclidine S crn Ur Amphetamines Sc reen U Benzodiazepines Scrn Urine Cocaine Scre en U Marijuana (THC) Screen Ethyl Alcohol Hepatitis A IgM Ab Hep Bs Antigen Hep Bs Antibody Hep B Core Total A b Hepatitis C Antibo dy HIV 1&2 Ab & HIV 1 Ag HIV 1&2 Antibody SARS-CoV-2 Ag (Rap id) 11/16/20 11/16/20 11/16/20 14:00 14:00 14:00 WBC 7.1 RBC 2.84 L Hgb 9.7 L Hct 29.5 L MCV 103.9 H MCH 34.2 H MCHC 32.9 RDW 14.6 Plt Count 288 MPV 9.2 Neut % (Auto) 76.0 Lymph % (Auto) 13.7 [place] % (Auto) 9.0 Eos % (Auto) 0.1 Baso % (Auto) 0.8 Neut # (Auto) 5.41 Lymph # (Auto) 1.0 [place] # (Auto) 0.6 Eos # (Auto) 0.0 Baso # (Auto) 0.1 Nucleated RBC % (a uto) 0 Nucleated RBCs # 0.0 Sodium 124 L Potassium 3.0 L Chloride 83 L Carbon Dioxide 21 L Anion Gap 23.0 H BUN 5 L Creatinine 0.3 L GFR Calculation 231.8 H Glucose 101 Estimat Average Gl ucose Hemoglobin A1c Calculated Osmolal ity 255 L Calcium 8.8 Magnesium Iron TIBC % Saturation Unsat Iron Binding Ferritin Total Bilirubin 2.0 H AST 61 H ALT 15 Alkaline Phosphata se 198 H Creatine Kinase Troponin T Gen 5 n g/L 7 Troponin T Baselin e Troponin T 120 Min [place] Troponin T Troponin T Hi Sens 6Hr Troponin T Hi Sens 6Hr Delta NT-Pro-B Natriuret Pep Total Protein 6.8 Albumin 4.2 Globulin 2.6 Triglycerides Cholesterol LDL Cholesterol, C alc Total VLDL Cholest gaurav HDL Cholesterol Cholesterol/HDL Ra jenn Vitamin B12 Folate Procalcitonin TSH Urine Color Urine Appearance Urine pH Ur Specific Gravit y Urine Protein Urine Glucose (UA) Urine Ketones Urine Blood Urine Nitrate Urine Bilirubin Prot Sulfosalicyli c Acd Urine Urobilinogen Ur Leukocyte Honey ase Urine RBC Urine WBC Ur Squamous Epith Cells Amorphous Sediment Urine Bacteria Ur Random Sodium Ur Random [place] m Ur Random Chloride Urine Opiates Scre en Ur Barbiturates Sc reen Ur Phencyclidine S crn Ur Amphetamines Sc reen U Benzodiazepines Scrn Urine Cocaine Scre en U Marijuana (THC) Screen Ethyl Alcohol Hepatitis A IgM Ab Hep Bs Antigen Hep Bs Antibody Hep B Core Total A b Hepatitis C Antibo dy HIV 1&2 Ab & HIV 1 Ag HIV 1&2 Antibody SARS-CoV-2 Ag (Rap id) Addt'l Data from Hospital Stay: Laboratory Results WBC 3.7 10^3/uL (4.0- 10.0) L 11/17/20 04:38 RBC 2.28 10^6/uL (4.1 -5.3) L 11/17/20 04:38 Hgb 7.8 g/dL (11.5-15 .3) L 11/17/20 04:38 Hct 25.3 % (37.0-47.0 ) L 11/17/20 04:38 MCV 111.0 fL (81-99) H D 11/17/20 04:38 MCH 34.2 pg (28.0-34. 0) H 11/17/20 04:38 MCHC 30.8 g/dL (30.0-3 6.0) D 11/17/20 04:38 RDW 14.7 % (12.1-15.1 ) 11/17/20 04:38 Plt Count 210 10^3/cmm (130 -400) 11/17/20 04:38 MPV 9.2 fL (7.4-10.4) 11/17/20 04:38 Neut % (Auto) 56.0 % 11/17/20 04:38 Lymph % (Auto) 30.4 % 11/17/20 04:38 [place] % (Auto) 10.6 % 11/17/20 04:38 Eos % (Auto) 1.6 % 11/17/20 04:38 Baso % (Auto) 1.1 % 11/17/20 04:38 Neut # (Auto) 2.06 10^3/uL (1.8 -7.7) 11/17/20 04:38 Lymph # (Auto) 1.1 10^3/uL (0.8- 4.8) 11/17/20 04:38 [place] # (Auto) 0.4 10^3/uL (0.2- 0.9) 11/17/20 04:38 Eos # (Auto) 0.1 10^3/uL (0.0- 0.8) 11/17/20 04:38 Baso # (Auto) 0.0 10^3/uL (0.0- 0.1) 11/17/20 04:38 Nucleated RBC % (a uto) 0 % 11/17/20 04:38 Nucleated RBCs # 0.0 /100WBC 11/17/20 04:38 Sodium 135 mmol/L (136-1 45) L 11/17/20 04:38 Potassium 3.5 mmol/L (3.5-5 .1) 11/17/20 04:38 Chloride 104 mmol/L (98-10 7) 11/17/20 04:38 Carbon Dioxide 20 mmol/L (22-29) L 11/17/20 04:38 Anion Gap 14.5 (5-19) 11/17/20 04:38 BUN 4 mg/dL (6-20) L 11/17/20 04:38 Creatinine 0.3 mg/dL (0.5-0. 9) L 11/17/20 04:38 GFR Calculation 231.8 mL/min (90- 130) H 11/17/20 04:38 Glucose 77 mg/dL (65-115) 11/17/20 04:38 Calculated Osmolal ity 276 mOsm/kg (285- 295) L 11/17/20 04:38 Calcium 7.7 mg/dL (8.5-10 .5) L 11/17/20 04:38 Magnesium 1.2 mg/dL (1.7-2. 3) L 11/17/20 04:38 Iron 183 ug/dL (37-145 ) H 11/16/20 16:10 TIBC 252 mcg/dl 11/16/20 16:10 % Saturation 72.6 % (20-50) H 11/16/20 16:10 Unsat Iron Binding 69 ug/dL (112-347 ) L 11/16/20 16:10 Ferritin 1278 ng/mL (15-15 0) H 11/17/20 04:38 Total Bilirubin 1.7 mg/dL (0.15-1 .2) H 11/17/20 04:38 AST 51 U/L (0-32) H 11/17/20 04:38 ALT 10 U/L (0-33) 11/17/20 04:38 Alkaline Phosphata se 137 IU/L (35-105) H 11/17/20 04:38 Creatine Kinase 29 U/L (26-192) 11/17/20 04:38 Troponin T Gen 5 n g/L 7 ng/L (0-10) 11/16/20 14:00 Troponin T Baselin e 7 ng/L (0-10) 11/16/20 16:10 Troponin T 120 Min [place] 9.25 ng/L (0-10) 11/16/20 19:27 Delta Troponin T 2.25 ABS# (0-10) 11/16/20 19:27 Troponin T Hi Sens 6Hr 10.24 ng/L (0-10) H 11/16/20 22:15 Troponin T Hi Sens 6Hr Delta 3.24 ng/L (0-12) 11/16/20 22:15 NT-Pro-B Natriuret Pep 378 pg/mL (0-125) H 11/16/20 16:10 Total Protein 5.7 g/dL (6.6-8.7 ) L 11/17/20 04:38 Albumin 3.2 g/dL (3.5-5.2 ) L 11/17/20 04:38 Globulin 2.5 g/dL (1.3-4.6 ) 11/17/20 04:38 Triglycerides 133 mg/dL (0-150) 11/17/20 04:38 Cholesterol 89 mg/dL (0-200) 11/17/20 04:38 LDL Cholesterol, C alc 48 mg/dL (50-129) L 11/17/20 04:38 Total VLDL Cholest gaurav 27 mg/dL (0-30) 11/17/20 04:38 HDL Cholesterol 14 mg/dL (60-100) L 11/17/20 04:38 Cholesterol/HDL Ra jenn 6.36 mg/dL (0.0-4 .40) H 11/17/20 04:38 Vitamin B12 671 pg/mL (232-12 45) 11/16/20 14:00 Folate 13.5 ng/mL (4.8-3 7.3) 11/16/20 14:00 Procalcitonin 0.26 ng/mL (0-0.5 ) 11/16/20 16:10 TSH 3.52 uIU/mL (0.27 -4.20) 11/16/20 16:10 Urine Color Yellow (Yellow) 11/17/20 03:15 Urine Appearance Sl hazy (CLEAR) 11/17/20 03:15 Urine pH 8 (5-7) H 11/17/20 03:15 Ur Specific Gravit y 1.010 (1.005-1.0 30) 11/17/20 03:15 Urine Protein Neg (Negative) 11/17/20 03:15 Urine Glucose (UA) Norm (Normal) 11/17/20 03:15 Urine Ketones Negative (Negati ve) 11/17/20 03:15 Urine Blood Neg (Negative) 11/17/20 03:15 Urine Nitrate Positive (Negati ve) H 11/17/20 03:15 Urine Bilirubin Neg (Negative) 11/17/20 03:15 Prot Sulfosalicyli c Acd Negative (Negati ve) 11/17/20 03:15 Urine Urobilinogen 1 mg/dL (Negative ) H 11/17/20 03:15 Ur Leukocyte Honey ase 2+ (Negative) H 11/17/20 03:15 Urine RBC 0-4 /hpf (0-2) H 11/17/20 03:15 Urine WBC 25-40 /hpf (0-5) H 11/17/20 03:15 Ur Squamous Epith Cells 0-4 /hpf (0-5) H 11/17/20 03:15 Amorphous Sediment Not Reportable 11/17/20 03:15 Urine Bacteria 4+ /hpf (NONE) H 11/17/20 03:15 Ur Random Sodium 44 mmol/L 11/17/20 03:15 Ur Random Potassiu m 9 mmol/L 11/17/20 03:15 Ur Random Chloride 36 mmol/L 11/17/20 03:15 Urine Opiates Scre en Negative ng/mL (N egative) 11/17/20 03:15 Ur Barbiturates Sc reen Negative ng/mL (N egative) 11/17/20 03:15 Ur Phencyclidine S crn Negative ng/mL (N egative) 11/17/20 03:15 Ur Amphetamines Sc reen Negative ng/mL (N egative) 11/17/20 03:15 U Benzodiazepines Scrn Positive ng/mL (N egative) H 11/17/20 03:15 Urine Cocaine Scre en Negative ng/mL (N egative) 11/17/20 03:15 U Marijuana (THC) Screen Negative ng/mL (N egative) 11/17/20 03:15 Ethyl Alcohol < 10 mg/dL (0-10) 11/16/20 16:10 Hepatitis A IgM Ab Non-reactive (No nreactive) 11/16/20 16:10 Hep Bs Antigen Non-reactive (No nreactive) 11/16/20 16:10 Hep Bs Antibody 3.5 (11.5-1000) L 11/16/20 16:10 Hep B Core Total A b Non-reactive (No nreactive) 11/16/20 16:10 Hepatitis C Antibo dy Non-reactive (No nreactive) 11/16/20 16:10 HIV 1&2 Ab & HIV 1 Ag Non-reactive (No n-Reactiv) 11/16/20 16:10 HIV 1&2 Antibody Non-reactive (No n-Reactiv) 11/16/20 16:10 SARS-CoV-2 Ag (Rap id) Negative (Negati ve) 11/16/20 16:10 Impressions Chest X-Ray 11/16/20 14:30 IMPRESSION: No acute lung abnormality. Echocardiogram: February 2020: CONCLUSIONS Normal left ventricular size and systolic function, EF 55%. Mild left ventricular hypertrophy. No regional wall motion abnormalities. Mildly increased left atrial size. Mild tricuspid valve regurgitation. Estimated pulmonary artery peak systolic pressure 32 mmHg Trace mitral valve regurgitation. There is no pericardial effusion. There are no intracardiac masses. No previous study is available for comparisons. Microbiology 11/17/20 00:45 Nose MRSA Culture - Final 11/17/20 03:15 Urine,Voided Legionella Urinary Antigen - Final Vitals: Last Vital Signs Temp 98.1 F 11/17/20 11:37 Pulse 100 11/17/20 11:37 Resp 24 H 11/17/20 11:37 BP 146/86 11/17/20 11:37 Pulse Ox 100 11/17/20 11:37 Discharge Plan Discharge Patient Disposition: Home Condition: Stable Prescriptions: New ferrous gluconate 324 mg (37.5 mg iron) Tablet 324 mg PO BIDWM 30 Days Qty: 30 RF: 0 multivitamin Tablet 1 tab PO DAILY Qty: 60 RF: 0 Protonix 40 mg tablet,delayed release (DR/EC) 40 mg PO BID Qty: 60 RF: 0 metoprolol tartrate 50 mg Tablet 50 mg PO BID@0900,2100 Qty: 60 RF: 0 levofloxacin 500 mg tablet 500 mg PO DAILY 7 Days Qty: 7 RF: 0 Continued aspirin [Adult Aspirin Regimen] 81 mg tablet,delayed release (DR/EC) 81 mg PO DAILY RF: 0 nitroglycerin 0.4 mg tablet, sublingual 0.4 mg SUBLINGUAL Q5M PRN (Reason: Chest Pain) RF: 0 buspirone 10 mg tablet 10 mg PO TID 90 Days Qty: 270 RF: 1 Vitamin C 1 tab PO DAILY RF: 0 atorvastatin 40 mg tablet 40 mg PO DAILY Qty: 30 RF: 0 tramadol 50 mg tablet 50 mg PO Q12H PRN (Reason: pain) Qty: 7 RF: 0 trazodone 50 mg Tablet 50 mg PO DAILY RF: 0 amlodipine 5 mg tablet 5 mg PO DAILY RF: 0 ergocalciferol (vitamin D2) 50,000 unit Tablet 50,000 unit PO Q7D RF: 0 methocarbamol 750 mg Tablet 750 mg PO DAILY PRN (Reason: BACK SPASM) RF: 0 trazodone 100 mg Tablet 100 mg PO DAILY RF: 0 folic acid 1 mg Tablet 1 mg PO DAILY RF: 0 thiamine HCl (vitamin B1) 50 mg Tablet 50 mg PO DAILY RF: 0 Discontinued potassium 99 mg Tablet 99 mg PO DAILY RF: 0 Discharge Orders: Discharge Order (Routine); Ordered 11/17/20 Ordered By: Norbert Stearns Discharge Diet: Regular Discharge Activity: Resume usual activity Patient Instructions: Metoprolol (By mouth), Multivitamins, Adult Formula (By mouth), Pantoprazole (By mouth), Ascorbic Acid/Cyanocobalamin/Ferrous Fumarate (By mouth), Opioid Safety Activity Restrictions/Additional Instructions: Please follow-up with your primary care provider and clinical radiologist for the next 1 week. You should follow-up with a strategic planning manager for an EGD and colonoscopy for further work-up of anemia given your history of occult positive stool. You should continue taking Protonix and metoprolol as prescribed to you. Please avoid using any further alcohol. Discharge Attestations Time Spent in Discharge Care*: greater than 30 min Specific Discharge Activities: educating patient, discussing with pcp/other providers, discussing with case planner/social workers/dc planners and evaluating patient/reviewing data Status at Discharge: Cognitive status at discharge: cognitively intact , Behavioral status at discharge: cooperative , Functional status at discharge: independent ambulation Overall status at discharge: patient is back to baseline Quality Metrics Clinical Quality Measures During this hospital stay, did patient experience: None Coding Level of Care Code Acute Chg FW DC note Diagnoses Palpitations R00.2 Chest pain R07.9 CAD (coronary artery disease) I25.10 Coronary Disease-Associated Artery/Lesion type: unspecified vessel or lesion type [place] vs. transplanted heart: [place] heart Associated angina: without angina Hyponatremia E87.1 Hypokalemia E87.6 Essential hypertension I10 Acute anemia D64.9 Alcohol abuse F10.10
[2020-11-17 14:37] LABS: Estmated Average Glucose 62; Hemoglobin A1C 3.8 % (4.0-6.0)
--- NOTE | 2020-11-17 15:03 | PC.NURSE ---
Patient states that she doesn't want to stay for the blood transfusion. She states that her ride will be here in an hour and she wants to do the blood outpatient with her doctor in [place]. Updated Dr. Stearns of this information and he states that is fine just to give her the B12 and she can discharge after that.
[2020-11-17] MEDS: cyanocobalamin 1,000 mcg/mL SDV 1000 MCG IM (15:11)
--- NOTE | 2020-11-17 15:58 | PC.NURSE ---
Discharge instructions reviewed with patient, she verbalized an understanding. All questions answered. IV removed, tip intact. Patient esorted to ER enterance where her mother picked her up in private vehicle. All personal belongings sent with patient.
== END 2020-11-17 15:50 | disposition home or self-care (01) ==
LOC: ER 18:04 → CSU 22:48
PROVIDERS: Nurse Practitioner Family; Admitting Provider Student in an Organized Health Care Education/Training Program; Emergency Provider Family Medicine; PCP Registered Nurse; Visit Provider Student in an Organized Health Care Education/Training Program
DX: R00.2 Palpitations (principal); R07.9 Chest pain, unspecified; I25.10 Atherosclerotic heart disease of native coronary artery without angina pectoris; E87.1 Hypo-osmolality and hyponatremia; E87.6 Hypokalemia; I10 Essential (primary) hypertension; D64.9 Anemia, unspecified; F10.10 Alcohol abuse, uncomplicated; E78.5 Hyperlipidemia, unspecified; Z95.5 Presence of coronary angioplasty implant and graft; Z79.82 Long term (current) use of aspirin; F17.210 Nicotine dependence, cigarettes, uncomplicated
CPT/HCPCS: 36415; 71045; 80053; 80061; 80306; 80307; 81001; 82436; 82550; 82607; 82728; 82746; 83036; 83540; 83550; 83735; 83880; 84133; 84145; 84300; 84443; 84484; 85025; 86705; 86706; 86709; 86803; 87077; 87086; 87186; 87340; 87426; 87449; 87641; 87806; 93005; 96361; 96372; 96374; 99285; G0378; J1650; J3411; J3420; J3490; J7030; J7040

== ENCOUNTER 2021-02-09 20:13 | Observation (INO) | payer MEDICAID, SELFPAY ==
[2021-02-09 20:19] VITALS: BP 188/95; PULSE 80; RESP 18; TEMP 36.4; O2SAT 99; BMI 16.2
--- NOTE | 2021-02-09 20:19 | ECG_ITS ---
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 Measurements Intervals [place] Rate: 77 P: 73 AR: 156 QRS: 58 QRSD: 86 T: 70 QT: 397 QTc: 450 Interpretive Statements SINUS RHYTHM POSSIBLE LEFT ATRIAL ENLARGEMENT [-0.1mV P-WAVE IN V1/V2] POSSIBLE LEFT VENTRICULAR HYPERTROPHY [VOLTAGE CRITERIA PLUS LAE OR QRS WIDENING] MODERATE ST DEPRESSION [0.05+ mV ST DEPRESSION] Compared to ECG 11/16/2020 19:53:03 ST (T wave) deviation now present Short AR interval no longer present Electronically Signed On 02-10-2021 0:28:59 CDT by Art Knapp M.D. [id number]
--- NOTE | 2021-02-09 20:19 | XRR_ITS ---
PROCEDURE INFORMATION: Exam: XR Chest Exam date and time: 02/09/2021 8:19 PM Age: 55 years old Clinical indication: Pain; Chest pressure; Prior surgery; Surgery date: 6+ months; Surgery type: Stent; Additional info: Chest pain TECHNIQUE: Imaging protocol: XR of the chest. Views: 1 view. COMPARISON: CR XR chest 1V portable [id number] 11/16/2020 3:45 PM FINDINGS: Lungs: Unremarkable. No consolidation. Pleural spaces: Unremarkable. No pleural effusion. No pneumothorax. Heart/Mediastinum: Unremarkable. No cardiomegaly. Bones/joints: Unremarkable. XR/XR chest 1V portable [id number] IMPRESSION: No acute disease. Radiation Dose CTDIVOL = (mGy): DLP = (mGy-cm)
[2021-02-09 20:35] VITALS: BP 184/95; PULSE 84; RESP 16; O2SAT 97
[2021-02-09 20:36] LABS: Basophils # 0.1 10^3/uL (0.0-0.1); Basophils % 1.4 %; Eosinophils # 0.1 10^3/uL (0.0-0.8); Hematocrit 39.8 % (37.0-47.0); Hemoglobin 13.6 g/dL (11.5-15.3); Lymphocytes # 3.3 10^3/uL (0.8-4.8); Lymphocytes % 41.3 %; Mean Corpuscular HGB Conc 34.2 g/dL (30.0-36.0); Mean Corpuscular Hemoglobin 31.1 pg (28.0-34.0); Mean Corpuscular Volume 91.1 fl (81-99); Mean Platelet Volume 9.3 fL (7.4-10.4); Monocytes # 0.7 10^3/uL (0.2-0.9); Monocytes % 9.2 %; Neutrophils # 3.77 10^3/uL (1.8-7.7); Neutrophils % 46.9 %; Nucleated Red Blood Cells % 0 %; Platelet Count 248 10^3/cmm (130-400); Red Blood Count 4.37 10^6/uL (4.1-5.3); Red Cell Distribution Width 13.3 % (12.1-15.1)
[2021-02-09 20:52] LABS: Troponin(5th) Baseline 17 ng/L (0-10)
[2021-02-09 20:53] LABS: Anion Gap 21.5 (5-19); Blood Urea Nitrogen 2 mg/dL (6-20); Calcium 9.4 mg/dL (8.5-10.5); Carbon Dioxide 22 mmol/L (22-29); Chloride 90 mmol/L (98-107); Creatinine Clr Calc Pharmacy 141.2251; Glomerular Filtration Rate 231.8 mL/min (90-130); Glucose 101 mg/dL (65-115); Osmolality Calculated 266 mOsm/kg (285-295); Potassium 3.5 mmol/L (3.5-5.1); Sodium 130 mmol/L (136-145)
--- NOTE | 2021-02-09 21:17 | ED_ITS ---
HPI - General Adult General: Chief complaint: Chest Pain Stated complaint: CHEST PAIN/ HTN Time Seen by Provider: 02/09/21 20:16 History of Present Illness: HPI narrative: CC: Chest Pain HPI: This is a [55] yo patient hx of HTN, CAD s/p stent x 1 presenting to the ED w/ acute onset intermittent substernal chest pain x 3 hours with radiation while attending daughter's birthday libertarian. Pain is dull and squeezing improved with nitro 0.4mg. Pt took ASA 325mg at home. Pain is not tearing in nature and does not radiate to the back. Endorse nausea but has no associated with vomiting or decreased PO intake. Denies any recent sympathomimetic drug use. Patient denies any cough. Denies palpitations, syncope symptoms. Pain not positional. No recent immobility, surgery, unilateral leg swelling, or prior PE. Patient denies any orthopnea, paroxysmal nocturnal dyspnea, weight gain, or increased leg swellings. Currently chest pain free. Onset: 3 hrs ago Duration: ongoing for the last 3 hrs Location: home Severity: moderate Review of Systems Narrative: Constitutional: No fever, no chills. HEENT: No vision changes, no sore throat. CV: +chest pain, no palpitations. PULM: No cough, no dyspnea. GI: No abdominal pain, no N/V/D. : No dysuria, no frequency, no hematuria. MSKEL: No arthralgias, no edema. SKIN: No new rashes, no lesions. NEURO: No headache, no focal weakness. HEME: No easy bleeding or bruising. PSYCH: No change in mood or affect. [facility] ED PFSH: Medical History Acute anemia Alcohol abuse Anemia CAD (coronary artery disease) Colitis Cystitis, acute Essential hypertension Hematuria Hyperlipidemia Hypokalemia Hypomagnesemia Hyponatremia Smoker UTI (urinary tract infection) Surgical History Hx of heart artery stent Hx of oral surgery Hx of tubal ligation Social History Smoking and tobacco status: current every day smoker Alcohol intake: current Alcohol intake frequency: few times a week Alcohol type: hard liquor Desire information about alcohol rehabilitation?: No Counseling given: Yes Last alcohol use date: 11/14/20 Other details last alcohol use: 2-3 shots of vodka Household members: friend(s) Housing: Apartment Physical Exam Narrative: EXAM NARRATIVE: Head: Atraumatic, normocephalic Eyes: PERRL, EOMI, conjunctiva without injection ENT: Throat without erythema, lesions or exudate, MMM NECK: Supple, trachea midline, no JVD LUNGS: LCTA CV: RRR, S1,S2, no murmurs, rubs, gallops. 2+ peripheral pulses in UEs ABDOMEN: Soft, nontender, nondistended, BS x4, no rigidity, no guarding, no rebound EXTREMITY: Normal ROM, no pitting edema, no calf tenderness to palpation SKIN: No rash or erythema NEURO: Awake and alert. No focal motor deficits. PSYCH: Normal mood and affect. Course Vital Signs: Vital signs: Vital Signs Temperature 98.4 F 02/10/21 12:55 Pulse Rate 85 02/10/21 12:55 Respiratory Rate 17 02/10/21 12:55 Blood Pressure 140/85 02/10/21 12:55 Pulse Oximetry 96 02/10/21 12:55 MDM - General Adult MDM Narrative: Medical decision making narrative: [55]yo patient w/ hx of CAD s/p stent x 1 presenting to the ED With acute substernal chest pain X 3 hrs with hx of similar prior pain. Currently chest pain free . Given History And Exam today I have moderate to high suspicion for ACS/UA/NSTEMI. Today, I have NO suspicion for pneumothorax, pneumonia, pulmonary embolus, tamponade, aortic dissection or other emergent problem as a cause for this presentation. ECG did not show any signs of acute STEMI. Workup: ECG, CXR, CBC, BMP, Troponin Intervention: none (ASA and nitro given) Findings: ECG: No overt evidence of STEMI, no hyperacute T waves, localizable STD or T wave inversions. No evidence of Brugada?s sign, delta wave, epsilon wave, significantly prolonged QTc, or malignant arrhythmia. No Q waves. Troponin: 17 (new compared to before) Other Labs unremarkable for emergent problems. CXR: Without PTX, PNA, or widened mediastinum [9:21] On reassessment, the patient is currently chest pain free. Troponin of 17 new compared to negative eval from 10/2020. Will be admitted for high risk chest pain workup. Disposition: Inpatient admission. Lab Data: Labs: Lab Results 02/09/21 02/09/21 02/09/21 10:25 20:28 20:28 WBC 8.0 10^3/uL 10^3/ uL (4.0-10.0) RBC 4.37 10^6/uL 10^6 /uL (4.1-5.3) Hgb 13.6 g/dL g/dL (11.5-15.3) Hct 39.8 % % (37.0-47.0) MCV 91.1 fl fl (81-99) MCH 31.1 pg pg (28.0-34.0) MCHC 34.2 g/dL g/dL (30.0-36.0) RDW 13.3 % % (12.1-15.1) Plt Count 248 10^3/cmm 10^3 /cmm (130-400) MPV 9.3 fL fL (7.4-10.4) Neut % (Auto) 46.9 % % Lymph % (Auto) 41.3 % % [place] % (Auto) 9.2 % % Eos % (Auto) 1.0 % % Baso % (Auto) 1.4 % % Neut # (Auto) 3.77 10^3/uL 10^3 /uL (1.8-7.7) Lymph # (Auto) 3.3 10^3/uL 10^3/ uL (0.8-4.8) [place] # (Auto) 0.7 10^3/uL 10^3/ uL (0.2-0.9) Eos # (Auto) 0.1 10^3/uL 10^3/ uL (0.0-0.8) Baso # (Auto) 0.1 10^3/uL 10^3/ uL (0.0-0.1) Nucleated RBC % (a uto) 0 % % Nucleated RBCs # 0.0 /100WBC /100W BC Sodium 130 mmol/L L mmol /L (136-145) Potassium 3.5 mmol/L mmol/L (3.5-5.1) Chloride 90 mmol/L L mmol/ L (98-107) Carbon Dioxide 22 mmol/L mmol/L (22-29) Anion Gap 21.5 H (5-19) BUN 2 mg/dL L mg/dL (6-20) Creatinine 0.3 mg/dL L mg/dL (0.5-0.9) GFR Calculation 231.8 mL/min H mL /min (90-130) Glucose 101 mg/dL mg/dL (65-115) Calculated Osmolal ity 266 mOsm/kg L mOs m/kg (285-295) Calcium 9.4 mg/dL mg/dL (8.5-10.5) Troponin T Baselin e Delta Troponin T Not Reportable 02/09/21 20:28 WBC RBC Hgb Hct MCV MCH MCHC RDW Plt Count MPV Neut % (Auto) Lymph % (Auto) [place] % (Auto) Eos % (Auto) Baso % (Auto) Neut # (Auto) Lymph # (Auto) [place] # (Auto) Eos # (Auto) Baso # (Auto) Nucleated RBC % (a uto) Nucleated RBCs # Sodium Potassium Chloride Carbon Dioxide Anion Gap BUN Creatinine GFR Calculation Glucose Calculated Osmolal ity Calcium Troponin T Baselin e 17 ng/L H ng/L (0-10) Delta Troponin T Discharge Plan Discharge Patient Disposition: Admitted As Inpatient Admit Provider: Marium Diaz Clinical Impression: Chest pain, Angina pectoris, unstable, Elevated troponin I level Condition: Stable Discharge Diet: Cardiac and Low Salt Discharge Activity: Resume usual activity Coding Level of Care Code 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
[2021-02-09 21:28] VITALS: BP 174/82; PULSE 80; RESP 16; O2SAT 97
[2021-02-09 21:34] VITALS: BP 160/90; PULSE 79; RESP 16; TEMP 37.1; O2SAT 98
[2021-02-09 22:00] VITALS: PULSE 93
[2021-02-09 22:17] VITALS: BMI 17.5
[2021-02-09 22:51] LABS: Troponin 5 2HR 18.88 ng/L (0-10)
--- NOTE | 2021-02-09 22:51 | PM.HP ---
Providers/Chief Complaint Admitting Physician: Marium Diaz MD Primary Care Provider: Darek Avitia Chief Complaint: CHEST PAIN/ HTN History of Present Illness Sugar Cassidy is a 55 year old female with a past medical history of CAD status post 1 stent in the past, alcohol dependence presenting today with chest pain. Patient states she was in her usual state of health until this evening when she had a pizza green party with her neighbors. She was reportedly annoyed by her neighbor and the neighbor's dog and thereafter developed chest pain which was located in midsternal area. Nonradiating. Associated dyspepsia. Patient did have alcohol along with her food. EKG without ST-T wave changes. Troponin baseline at 17, 2 hours at 18. Alcohol level requested by me later returned at 195. Chest pain is currently resolved. Review of Systems General: Reports: 10 or more systems reviewed and unremarkable except in HPI and below Const: Denies: fever(s), chills or body aches Eyes: Denies: change in vision, blurry vision or photophobia ENMT: Reports: hoarseness; Denies: throat pain, enlarged tonsils, odynophagia or nasal congestion Card: Denies: chest pain, palpitations, irregular heart rhythm, edema, swelling of feet/ankles, lightheadedness, pre-syncope, dyspnea on exertion or orthopnea Resp: Denies: dyspnea, productive cough, non-productive cough, wheezing, stridor, pain on inspiration, change in phlegm color, hemoptysis or chest congestion GI: Denies: abdominal pain, nausea, vomiting, hematemesis, coffee ground emesis, dysphagia, heartburn, diarrhea, constipation, GI cramping, change in stool character, hematochezia or melena : Denies: flank pain, difficulty voiding, dysuria, urinary frequency, urinary urgency, urinary hesitancy or hematuria Musc: Denies: neck pain, back pain, extremity pain, joint swelling, joint warmth or deformity Neuro: Denies: headache(s), numbness in extremities, weakness in extremities, sensory changes, difficulty walking, frequent falls, dizziness, vertigo, behavioral changes, Slurred speech present or seizure-like activity Psych: Denies: anxiety, depression, suicidal ideation or homicidal ideation Endo: Denies: polyuria, polydipsia, tired all the time, cold intolerance or hot flashes Michael/Lymph: Denies: easy bruising or easy bleeding Medications/Allergies Home Medications Medication Instructions Recorded Confirmed Last Taken Type aspirin 81 mg tablet,delayed 81 mg PO DAILY 06/10/19 11/16/20 11/16/20 History release nitroglycerin 0.4 mg sublingual 0.4 mg SUBLINGUAL Q5M PRN 06/10/19 11/16/20 11/16/20 History tablet Vitamin C 1 tab PO DAILY 02/19/20 11/16/20 11/16/20 History atorvastatin 40 mg PO DAILY #30 tab 02/21/20 11/16/20 Unknown Rx tramadol 50 mg PO Q12H PRN #7 tab 02/21/20 11/16/20 Unknown Rx amlodipine 5 mg PO DAILY 11/16/20 11/16/20 11/16/20 History ergocalciferol (vitamin D2) 50,000 unit PO Q7D 11/16/20 11/16/20 11/14/20 History folic acid 1 mg PO DAILY 11/16/20 11/16/20 11/16/20 History methocarbamol 750 mg PO DAILY PRN 11/16/20 11/16/20 11/16/20 History thiamine HCl (vitamin B1) 50 mg PO DAILY 11/16/20 11/16/20 11/16/20 History trazodone 50 mg PO DAILY 11/16/20 11/16/20 Unknown History trazodone 100 mg PO DAILY 11/16/20 11/16/20 Unknown History metoprolol tartrate 50 mg PO BID@0900,2100 #60 tab 11/17/20 Unknown Rx multivitamin 1 tab PO DAILY #60 tab 11/17/20 Unknown Rx pantoprazole [Protonix] 40 mg PO BID #60 tab 11/17/20 Unknown Rx buspirone 10 mg tablet 10 mg PO BID 5 Days #10 tab 11/25/20 Unknown Rx Allergies Allergy/AdvReac Type Severity Reaction Status Date / Time No Known Allergies Allergy Verified 02/19/20 09:41 PFSH Acute PFSH: Medical History Acute anemia Alcohol abuse Anemia CAD (coronary artery disease) Colitis Cystitis, acute Essential hypertension Hematuria Hyperlipidemia Hypokalemia Hypomagnesemia Hyponatremia Smoker UTI (urinary tract infection) Surgical History Hx of heart artery stent Hx of oral surgery Hx of tubal ligation Social History Smoking and tobacco status: current every day smoker Alcohol intake: current Alcohol intake frequency: few times a week Alcohol type: hard liquor Desire information about alcohol rehabilitation?: No Counseling given: Yes Last alcohol use date: 11/14/20 Other details last alcohol use: 2-3 shots of vodka Household members: friend(s) Housing: Apartment Vitals/I&O/Wt Last Vital Signs Temp 98.7 F 02/09/21 21:34 Pulse 79 02/09/21 21:34 Resp 16 02/09/21 21:34 BP 160/90 02/09/21 21:34 Pulse Ox 98 02/09/21 21:34 Weight last 48 hrs Weight 44.991 kg Weight 41.73 kg Physical Exam Narrative: EXAM NARRATIVE: General: No acute distress, AO x3 HEENT: PERRLA, pupils bilaterally equal and reactive, pallors not present Chest: Normal vesicular breath sounds, no added sounds, equal good air entry bilaterally CVS: S1-S2 regular, no murmurs, no tachycardia, no gallops, no rubs Abdomen: Soft, nontender, no organomegaly, bowel sounds present Neuro: No focal deficits, no facial deformity, AO x3, power 5/5 in all limbs Data : 02/09/21 20:28 02/10/21 03:45 A&P Assessment and plan (1) Atypical chest pain: Patient presenting today with epigastric and mid chest pain. EKG without acute ST-T wave changes. Baseline troponin at 17, 2-hour troponin at 18, delta not significant. Pending 6-hour troponin level. Clinically symptoms appear to be most likely related to alcohol intoxication and dyspepsia. Protonix 40 mg p.o. twice daily Dehydration likely secondary to alcohol intoxication with elevated anion gap, mild hyponatremia also likely secondary to dehydration. Normal saline at 75 cc an hour overnight. Monitor for any signs of alcohol withdrawal. Patient is clinically well-appearing overall. Status: Acute Attestations Medical Necessity Statement*: Pending 6-hour troponin, observation admission to rule out ACS, suspect symptoms more related to acute alcohol intoxication. 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
[2021-02-09] MEDS: nicotine 21 mg Patch 1 PATCH TRANSDERMA (23:26)
[2021-02-09 23:29] LABS: Alcohol Level 195 mg/dL (0-10)
[2021-02-10] VITALS: BP 154/78; PULSE 88; RESP 16; TEMP 36.7; O2SAT 97
--- NOTE | 2021-02-10 02:35 | PC.NURSE ---
at 0200 attempted to administer NS with potassium as ordered, patient adamantly refused, stated no I will not have any IV fluids, I swell up everytime,
--- NOTE | 2021-02-10 03:06 | ECG_ITS ---
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 Measurements Intervals [place] Rate: 78 P: 67 CO: 152 QRS: 27 QRSD: 82 T: 58 QT: 411 QTc: 469 Interpretive Statements SINUS RHYTHM Compared to ECG 02/09/2021 20:23:00 ST (T wave) deviation no longer present Electronically Signed On 02-10-2021 18:39:50 CDT by Amanuel Oviedo M.D. [id number]
[2021-02-10 04:00] VITALS: BP 176/86; PULSE 87; RESP 16; TEMP 36.6; O2SAT 94
[2021-02-10 04:41] LABS: Troponin 5 6HR 18.58 ng/L (0-10); Troponin 5 6HR Delta 1.58 ng/L (0-12)
[2021-02-10 04:42] LABS: Alanine Aminotransferase 20 U/L (0-33); Albumin Level 3.9 g/dL (3.5-5.2); Alkaline Phosphatase 153 IU/L (35-105); Anion Gap 20.5 (5-19); Aspartate Amino Transferase 78 U/L (0-32); Blood Urea Nitrogen 2 mg/dL (6-20); Calcium 8.6 mg/dL (8.5-10.5); Carbon Dioxide 21 mmol/L (22-29); Chloride 98 mmol/L (98-107); Globulin 2.5 g/dL (1.3-4.6); Glomerular Filtration Rate 370.1 mL/min (90-130); Glucose 81 mg/dL (65-115); Osmolality Calculated 277 mOsm/kg (285-295); Potassium 3.5 mmol/L (3.5-5.1); Sodium 136 mmol/L (136-145); Total Bilirubin 0.5 mg/dL (0.15-1.2); Total Protein 6.4 g/dL (6.6-8.7)
[2021-02-10 06:00] VITALS: PULSE 96
[2021-02-10 07:12] VITALS: BP 183/75; PULSE 94; RESP 17; TEMP 36.8; O2SAT 97
[2021-02-10] MEDS: aspirin 81 mg EC Tablet PO (08:36)
[2021-02-10] MEDS: metoprolol tartrate 50 mg Tablet PO (08:36)
[2021-02-10] MEDS: pantoprazole DR 40 mg Tablet PO (08:36)
[2021-02-10] MEDS: amlodipine 5 mg Tablet PO (08:36)
[2021-02-10] MEDS: thiamine 100 mg Tablet PO (08:36)
[2021-02-10] MEDS: nicotine 21 mg Patch 1 PATCH TRANSDERMA (08:37)
--- NOTE | 2021-02-10 10:54 | PC.CHAP ---
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 [] Patient/Family/Request visit [] Outpatient visit [] Follow-up visit [] Physician referral [] Code/Alert [] Routine visit [] Staff referral [] Actively dying [] Patient sleeping [] Family support [] [] Out of room [] Palliative care [] [] Receiving care in room [] Pre-surgical visit [] Trauma [] Long length of stay [] ICU visit [] Other: Relational/Emotional Strength [] Patient feels connected with others/family/visitors/staff [] Distress [] Loneliness/isolation [] Abandonment Spirituality of Patient [] Person of Estefany [] Attends Evangelical of their Estefany [] Believes in Prayer [] Reads Bible or Restorationism materials [] There are Spiritual issues to be addressed Deburrer Interventions [] Prayer [] Active listening [] Non-anxious presence [] Spiritual/emotional support [] Crisis/trauma care [] Spiritual counseling [] Bereavement support [] Provided bereavement packet [] Provided Bible/devotional materials [] Provided toy/stuffed animal, coloring book to patient or family member [] Provided Communion [] Anointing/[place] [] Salvation [] Completed spiritual assessment [] Other: Impact on Illness or Injury [] Angry [] Fearful [] Anxious [] Often cries [] Exhaustion [] Unable to work [] Unable to attend restoration [] Unable to walk/stand [] Unable to read [] Unable to drive [] Unable to eat/drink [] Unable to sleep [] Unable to be with family [] Patient intubated [] Other: Summary Time spent with patient
--- NOTE | 2021-02-10 11:28 | P.DS_ITS ---
Discharge Providers Date of Admission: 02/09/21 21:05 Date of Discharge: February 10, 2021 Attending Provider at Admission: Marium Diaz MD Attending Provider at Discharge: Norbert Stearns MD Primary Care Provider: Darek Avitia Diagnoses at Discharge Discharge Diagnosis (1) Atypical chest pain: Status: Acute Reason for Visit Reason for Visit: CHEST PAIN/ HTN Hospital Course Hospital Course Sugar Cassidy is a 55 year old female with a past medical history of CAD status post 1 stent in the past, alcohol dependence presenting today with chest pain. Patient states she was in her usual state of health until this evening when she had a pizza libertarian with her neighbors. She was reportedly annoyed by her neighbor and the neighbor's dog and thereafter developed chest pain which was located in midsternal area. Nonradiating. Associated dyspepsia. Patient did have alcohol along with her food. EKG without ST-T wave changes. Troponin baseline at 17, 2 hours at 18. Alcohol level requested by me later returned at 195. Patient was admitted under observation overnight. Troponin cycles remain negative and trended down. Patient denied of having any chest pain since admission. She remained hemodynamically stable. She was found to have elevated blood pressure during hospitalization. Her antihypertensives were adjusted. She has been discharged in hemodynamically stable condition with advised to follow-up with her strike operations officer within next 1 month. She states she is not able to follow-up with her strike operations officer because they are mostly in [place] and is difficult for her to find a ride. She was advised to make an appointment with strike operations officer in [place] so that she can have more regular follow-up. Patient verbalized understanding. She has been given number for the heart team services to make an appointment going forward. Patient verbalized understanding. It was advised to her again in detail for alcohol abstinence. She was also encouraged for alcohol withdrawal program. She is advised to maintain a blood pressure diary and follow-up with primary care provider within next 1 week for further and adjustment of antihypertensives. Physical Exam Narrative: EXAM NARRATIVE: General: No acute distress, AO x3 HEENT: PERRLA, pupils bilaterally equal and reactive, pallors not present Chest: Normal vesicular breath sounds, no added sounds, equal good air entry bilaterally CVS: S1-S2 regular, no murmurs, no tachycardia, no gallops, no rubs Abdomen: Soft, nontender, no organomegaly, bowel sounds present Neuro: No focal deficits, no facial deformity, AO x3, power 5/5 in all limbs Discharge Data Data Completed and Pending: Completed Studies During Hospitalization Category Date Time Status XR chest 1V akhil ble [id number] Urgent Exams 02/09/21 20:19 Completed Labs from last 24 hours 02/10/21 02/10/21 02/09/21 03:45 03:45 22:25 WBC RBC Hgb Hct MCV MCH MCHC RDW Plt Count MPV Neut % (Auto) Lymph % (Auto) [place] % (Auto) Eos % (Auto) Baso % (Auto) Neut # (Auto) Lymph # (Auto) [place] # (Auto) Eos # (Auto) Baso # (Auto) Nucleated RBC % (a uto) Nucleated RBCs # Sodium 136 Potassium 3.5 Chloride 98 Carbon Dioxide 21 L Anion Gap 20.5 H BUN 2 L Creatinine 0.2 L GFR Calculation 370.1 H Glucose 81 Calculated Osmolal ity 277 L Calcium 8.6 Total Bilirubin 0.5 AST 78 H ALT 20 Alkaline Phosphata se 153 H Troponin T Baselin e Troponin T 120 Min [place] Delta Troponin T Troponin T Hi Sens 6Hr 18.58 H Troponin T Hi Sens 6Hr Delta 1.58 Total Protein 6.4 L Albumin 3.9 Globulin 2.5 Ethyl Alcohol 195 H 02/09/21 02/09/21 02/09/21 22:25 20:28 20:28 WBC RBC Hgb Hct MCV MCH MCHC RDW Plt Count MPV Neut % (Auto) Lymph % (Auto) [place] % (Auto) Eos % (Auto) Baso % (Auto) Neut # (Auto) Lymph # (Auto) [place] # (Auto) Eos # (Auto) Baso # (Auto) Nucleated RBC % (a uto) Nucleated RBCs # Sodium 130 L Potassium 3.5 Chloride 90 L Carbon Dioxide 22 Anion Gap 21.5 H BUN 2 L Creatinine 0.3 L GFR Calculation 231.8 H Glucose 101 Calculated Osmolal ity 266 L Calcium 9.4 Total Bilirubin AST ALT Alkaline Phosphata se Troponin T Baselin e 17 H Troponin T 120 Min [place] 18.88 H Delta Troponin T Troponin T Hi Sens 6Hr Troponin T Hi Sens 6Hr Delta Total Protein Albumin Globulin Ethyl Alcohol 02/09/21 02/09/21 20:28 10:25 WBC 8.0 RBC 4.37 Hgb 13.6 Hct 39.8 MCV 91.1 MCH 31.1 MCHC 34.2 RDW 13.3 Plt Count 248 MPV 9.3 Neut % (Auto) 46.9 Lymph % (Auto) 41.3 [place] % (Auto) 9.2 Eos % (Auto) 1.0 Baso % (Auto) 1.4 Neut # (Auto) 3.77 Lymph # (Auto) 3.3 [place] # (Auto) 0.7 Eos # (Auto) 0.1 Baso # (Auto) 0.1 Nucleated RBC % (a uto) 0 Nucleated RBCs # 0.0 Sodium Potassium Chloride Carbon Dioxide Anion Gap BUN Creatinine GFR Calculation Glucose Calculated Osmolal ity Calcium Total Bilirubin AST ALT Alkaline Phosphata se Troponin T Baselin e Troponin T 120 Min [place] Delta Troponin T Not Reportable Troponin T Hi Sens 6Hr Troponin T Hi Sens 6Hr Delta Total Protein Albumin Globulin Ethyl Alcohol Addt'l Data from Hospital Stay: Laboratory Results WBC 8.0 10^3/uL (4.0- 10.0) 02/09/21 20: RBC 4.37 10^6/uL (4.1 -5.3) 02/09/21 20:28 Hgb 13.6 g/dL (11.5-1 5.3) 02/09/21 20: Hct 39.8 % (37.0-47.0 ) 02/09/21 20:28 MCV 91.1 fl (81-99) 02/09/21 20: MCH 31.1 pg (28.0-34. 0) 02/09/21 20: MCHC 34.2 g/dL (30.0-3 6.0) 02/09/21 20:28 RDW 13.3 % (12.1-15.1 ) 02/09/21 20: Plt Count 248 10^3/cmm (130 -400) 02/09/21 20:28 MPV 9.3 fL (7.4-10.4) 02/09/21 20:28 Neut % (Auto) 46.9 % 02/09/21 20:28 Lymph % (Auto) 41.3 % 02/09/21 20:28 [place] % (Auto) 9.2 % 02/09/21 20:28 Eos % (Auto) 1.0 % 02/09/21 20:28 Baso % (Auto) 1.4 % 02/09/21 20:28 Neut # (Auto) 3.77 10^3/uL (1.8 -7.7) 02/09/21 20:28 Lymph # (Auto) 3.3 10^3/uL (0.8- 4.8) 02/09/21 20:28 [place] # (Auto) 0.7 10^3/uL (0.2- 0.9) 02/09/21 20:28 Eos # (Auto) 0.1 10^3/uL (0.0- 0.8) 02/09/21 20: Baso # (Auto) 0.1 10^3/uL (0.0- 0.1) 02/09/21 20: Nucleated RBC % (a uto) 0 % 02/09/21 20: Nucleated RBCs # 0.0 /100WBC 02/09/21 20:28 Sodium 136 mmol/L (136-1 45) 02/10/21 03:45 Potassium 3.5 mmol/L (3.5-5 .1) 02/10/21 03:45 Chloride 98 mmol/L (98-107 ) 02/10/21 03:45 Carbon Dioxide 21 mmol/L (22-29) L 02/10/21 03:45 Anion Gap 20.5 (5-19) H 02/10/21 03:45 BUN 2 mg/dL (6-20) L 02/10/21 03:45 Creatinine 0.2 mg/dL (0.5-0. 9) L 02/10/21 03:45 GFR Calculation 370.1 mL/min (90- 130) H 02/10/21 03:45 Glucose 81 mg/dL (65-115) 02/10/21 03:45 Calculated Osmolal ity 277 mOsm/kg (285- 295) L 02/10/21 03:45 Calcium 8.6 mg/dL (8.5-10 .5) 02/10/21 03:45 Total Bilirubin 0.5 mg/dL (0.15-1 .2) 02/10/21 03:45 AST 78 U/L (0-32) H 02/10/21 03:45 ALT 20 U/L (0-33) 02/10/21 03:45 Alkaline Phosphata se 153 IU/L (35-105) H 02/10/21 03:45 Troponin T Baselin e 17 ng/L (0-10) H 02/09/21 20:28 Troponin T 120 Min [place] 18.88 ng/L (0-10) H 02/09/21 22:25 Delta Troponin T Not Reportable 02/09/21 10:25 Troponin T Hi Sens 6Hr 18.58 ng/L (0-10) H 02/10/21 03:45 Troponin T Hi Sens 6Hr Delta 1.58 ng/L (0-12) 02/10/21 03:45 Total Protein 6.4 g/dL (6.6-8.7 ) L 02/10/21 03:45 Albumin 3.9 g/dL (3.5-5.2 ) 02/10/21 03:45 Globulin 2.5 g/dL (1.3-4.6 ) 02/10/21 03:45 Ethyl Alcohol 195 mg/dL (0-10) H 02/09/21 22:25 Impressions Chest X-Ray 02/09/21 20:19 IMPRESSION: No acute disease. Radiation Dose CTDIVOL = (mGy): DLP = (mGy-cm) Vitals: Last Vital Signs Temp 98.3 F 02/10/21 07:12 Pulse 94 02/10/21 07:12 Resp 17 02/10/21 07:12 BP 183/75 02/10/21 07:12 Pulse Ox 97 02/10/21 07:12 Discharge Plan Discharge Patient Disposition: Home Condition: Stable Prescriptions: New amlodipine 5 mg Tablet 5 mg PO DAILY 30 Days Qty: 30 RF: 0 losartan-hydrochlorothiazide 50-12.5 mg tablet 1 tab PO DAILY Qty: 30 RF: 0 Continued nitroglycerin 0.4 mg tablet, sublingual 0.4 mg SUBLINGUAL Q5M PRN (Reason: Chest Pain) RF: 0 atorvastatin 40 mg tablet 40 mg PO DAILY Qty: 30 RF: 0 tramadol 50 mg tablet 50 mg PO Q12H PRN (Reason: pain) Qty: 7 RF: 0 pantoprazole 40 mg tablet,delayed release (DR/EC) 40 mg PO DAILY RF: 0 buspirone 15 mg tablet 15 mg PO BID RF: 0 trazodone 50 mg Tablet 50 mg PO BEDTIME PRN (Reason: Insomnia) RF: 0 trazodone 100 mg Tablet 100 mg PO DAILY RF: 0 folic acid 1 mg Tablet 1 mg PO DAILY RF: 0 thiamine HCl (vitamin B1) 50 mg Tablet 50 mg PO DAILY RF: 0 multivitamin Tablet 1 tab PO DAILY Qty: 60 RF: 0 metoprolol tartrate 50 mg Tablet 50 mg PO BID@0900,2100 Qty: 60 RF: 0 Discontinued ascorbic acid (vitamin C) [Vitamin C] 500 mg Tablet 500 mg PO DAILY Qty: 0 RF: 0 Discharge Orders: Discharge Order (Routine); Ordered 02/10/21 Ordered By: Norbert Stearns Referrals: Darek Avitia [Primary Care Provider] - (Please call and schedule an appointment with Dr. Avitia within two weeks.) Discharge Diet: Cardiac and Low Salt Discharge Activity: Resume usual activity Patient Instructions: Chest Pain - Noncardiac, Chest Pain Stoplight, Opioid Safety Activity Restrictions/Additional Instructions: Please follow-up with strike operations officer within next 1 week. Please check your blood pressure twice daily and maintain a blood pressure diary and follow-up with a primary care provider for further adjustment of antihypertensives. Please try to abstain from alcohol use going forward as discussed in detail. Discharge Attestations Time Spent in Discharge Care*: less than 30 min Specific Discharge Activities: educating patient, discussing with case filler/social workers/dc planners, documenting/other paperwork and evaluating patient/reviewing data Status at Discharge: Cognitive status at discharge: cognitively intact , Behavioral status at discharge: cooperative , Functional status at discharge: independent ambulation Overall status at discharge: patient is back to baseline Quality Metrics Clinical Quality Measures During this hospital stay, did patient experience: None Coding Level of Care Code Acute Chg FW DC note Diagnoses Atypical chest pain R07.89
--- NOTE | 2021-02-10 11:36 | USCV_ITS ---
Sugar Cassidy Age: 55 Gender: F : 1965 Exam Date: 02/10/2021 12:02 Ordering Phys: Norbert Stearns MD Technologist: Karolina Santiago [place] [facility] [place] H/O CAD BP: 140 / 85 HR: 83 Rhythm: Sinus Technical Quality: Adequate MEASUREMENTS (Male / Female) Normal Values 2D ECHO LV Diastolic Diameter PLAX 4.5 cm 4.2 - 5.9 / 3.9 - 5.3 cm LV Systolic Diameter PLAX 2.8 cm IVS Diastolic Thickness 1.6 cm 0.6 - 1.0 / 0.6 - 0.9 cm IVS Systolic Thickness 2.4 cm LVPW Diastolic Thickness 1.3 cm 0.6 - 1.0 / 0.6 - 0.9 cm LVPW Systolic Thickness 1.0 cm LVOT Diameter 2.0 cm LV Ejection Fraction 2D Teich 69.0 % LV Ejection Fraction MOD 2C 66.7 % LV Ejection Fraction 2C AL 67.3 % LA Diameter 2.3 cm LA Width 2.2 cm LA Height 3.6 cm RA Width 2.8 cm RA Height 3.4 cm Aorta at Sinotubular Diameter 2.6 cm DOPPLER AV Peak Velocity 146.0 cm/s LVOT Peak Velocity 143.0 cm/s AV Area Cont Eq vti 3.2 cm squared AV Area Cont Eq pk 3.1 cm squared MV Peak Velocity 104.0 cm/s MV Area PHT 3.2 cm squared Mitral E to A Ratio 0.8 MV E' Velocity 40.0 cm/s Mitral E to MV E' Ratio 8.0 Mitral E to LV E' Lateral Ratio 6.5 Mitral E to LV E' Septal Ratio 10.4 TR Peak Velocity 245.6 cm/s TR Peak Gradient 24.1 mmHg TR Mean Velocity 189.0 cm/s TR Mean Gradient 15.7 mmHg TR Velocity Time Integral 56.2 cm TV Peak E Velocity 53.0 cm/s Right Atrial Pressure 3.0 mmHg Pulmonary Artery Systolic Pressu 27.1 mmHg FINDINGS Left Ventricle Normal left ventricular size and systolic function, EF 75 %. Moderate left ventricular hypertrophy. No regional wall motion abnormalities. Right Ventricle The right ventricle is normal in size and function. Right Atrium The right atrium is normal in size. Left Atrium The left atrium is normal in size. Mitral Valve Trace mitral valve regurgitation. Aortic Valve No gross abnormalities noted Tricuspid Valve No gross abnormalities noted Pulmonic Valve Pulmonic valve not well visualized. Pericardium Normal pericardium without effusion. Aorta Normal aortic annulus size. CONCLUSIONS Normal left ventricular size and systolic function, EF 75 %. Moderate left ventricular hypertrophy. No regional wall motion abnormalities. Trace mitral and tricuspid valve regurgitation. Normal PA pressure, based on the TR jet There is no pericardial effusion. There are no intracardiac masses. Compared to the study from 02/20/2020, there may not be a significant change Dr Amanuel Oviedo MD FACC (Electronically Signed) Final Date: 10 February 2021 17:25 S
[2021-02-10 11:40] VITALS: BP 140/85; PULSE 85; RESP 17; TEMP 36.9; O2SAT 96
[2021-02-10] MEDS: acetaminophen 325 mg Tablet 650 MG PO (12:28)
--- NOTE | 2021-02-10 12:31 | PC.NURSE ---
DISCHARGE EDUCATION DISCHARGE EDUCATION GIVEN PER THIS NURSE WELL LARGE BAG OF HOME MEDICATION RETURNED TO PT
[2021-02-10 12:55] VITALS: BP 140/85; PULSE 85; RESP 17; TEMP 36.9; O2SAT 96
--- NOTE | 2021-02-11 18:00 | PC.RESP ---
Smoking Cessation information sent to patient.
== END 2021-02-10 12:56 | disposition home or self-care (01) ==
LOC: ER 21:15 → MEDSURG 21:21
PROVIDERS: Admitting Provider Student in an Organized Health Care Education/Training Program; Emergency Provider Emergency Medicine; PCP Family Medicine; Visit Provider Student in an Organized Health Care Education/Training Program
DX: R07.89 Other chest pain (principal); R10.13 Epigastric pain; E86.0 Dehydration; R77.8 Other specified abnormalities of plasma proteins; I25.10 Atherosclerotic heart disease of native coronary artery without angina pectoris; F10.20 Alcohol dependence, uncomplicated; Y90.6 Blood alcohol level of 120-199 mg/100 ml; I10 Essential (primary) hypertension; E87.5 Hyperkalemia; D64.9 Anemia, unspecified; E83.42 Hypomagnesemia; E87.6 Hypokalemia; F17.200 Nicotine dependence, unspecified, uncomplicated; Z79.82 Long term (current) use of aspirin; Z95.818 Presence of other cardiac implants and grafts
CPT/HCPCS: 36415; 71045; 80048; 80053; 80307; 84484; 85025; 93005; 93306; 99285; G0378

== ENCOUNTER → 2022-02-03 09:58 | Outpatient (BNVA) | payer MEDICAID, SELFPAY | PROVIDERS: PCP Family Medicine; Visit Provider Student in an Organized Health Care Education/Training Program | DX: S52.501A Unspecified fracture of the lower end of right radius, initial encounter for closed fracture (principal); W19.XXXA Unspecified fall, initial encounter | CPT/HCPCS: 73110 ==

== ENCOUNTER 2022-02-03 14:34 | Outpatient (CLI) | payer MEDICAID, SELFPAY | END 2022-02-03 14:35 | disposition home or self-care (01) | LOC: SPT 14:35 | PROVIDERS: PCP Family Medicine; Visit Provider Student in an Organized Health Care Education/Training Program | DX: Z46.89 Encounter for fitting and adjustment of other specified devices (principal); S52.591D Other fractures of lower end of right radius, subsequent encounter for closed fracture with routine healing; X58.XXXD Exposure to other specified factors, subsequent encounter | CPT/HCPCS: 97760; L3982 ==

== ENCOUNTER → 2022-02-17 09:28 | Outpatient (BNVA) | payer MEDICAID, SELFPAY | PROVIDERS: PCP Family Medicine; Visit Provider Student in an Organized Health Care Education/Training Program | DX: S52.501D Unspecified fracture of the lower end of right radius, subsequent encounter for closed fracture with routine healing (principal); W19.XXXD Unspecified fall, subsequent encounter | CPT/HCPCS: 73110 ==

== ENCOUNTER → 2022-03-27 10:26 | Outpatient (BNVA) | payer MEDICAID, SELFPAY | PROVIDERS: PCP Family Medicine; Visit Provider Student in an Organized Health Care Education/Training Program | DX: S52.501A Unspecified fracture of the lower end of right radius, initial encounter for closed fracture (principal); X58.XXXA Exposure to other specified factors, initial encounter | CPT/HCPCS: 73110 ==

== ENCOUNTER 2022-03-27 11:51 | Outpatient (CLI) | payer MEDICAID, SELFPAY | END 2022-03-27 11:52 | disposition home or self-care (01) | LOC: SPT 11:51 | PROVIDERS: PCP Family Medicine; Visit Provider Student in an Organized Health Care Education/Training Program | DX: Z46.89 Encounter for fitting and adjustment of other specified devices (principal); S62.101D Fracture of unspecified carpal bone, right wrist, subsequent encounter for fracture with routine healing; X58.XXXD Exposure to other specified factors, subsequent encounter | CPT/HCPCS: 97760; L3908 ==